=== PATIENT | female | born 1990 | race American Indian/Alaskan Native ===

== ENCOUNTER 2020-12-25 13:40 | Outpatient (REF) | payer MEDICAID, SELFPAY ==
[2020-12-26 11:22] LABS: CT PCR NOT DETECTED (Not Detect.); NG PCR NOT DETECTED (Not Detect.)
[2020-12-26 12:03] LABS: BV Int Neg Control Negative (Negative); BV Int Pos Control Positive (Positive)
[2020-12-30 00:52] LABS: HPV mRNA E6/E7 rflx Not Detected (Not Detected)
== END 2020-12-25 13:41 | disposition home or self-care (01) ==
LOC: HO.LAB 13:40
PROVIDERS: Visit Provider Advanced Practice Midwife
DX: Z01.419 Encounter for gynecological examination (general) (routine) without abnormal findings (principal); Z20.2 Contact with and (suspected) exposure to infections with a predominantly sexual mode of transmission
CPT/HCPCS: 87480; 87491; 87510; 87591; 87624; 87660; 88142

== ENCOUNTER 2020-12-29 12:12 | Outpatient (REF) | payer MEDICAID, SELFPAY ==
[2020-12-30 08:09] LABS: HIV AB/AG Nonreactive (Nonreactive); HIV Num 1 0.08 S/CO (0.00-0.99)
[2020-12-30 08:31] LABS: HBsAGNum1 0.23 S/CO (0.00-0.99); Hepatitis B Surface Antigen Negative (Negative); ~HepC Num1 0.13 S/CO (0.00-0.79); ~Hepatitis C Antibody Nonreactive (Nonreactive)
[2020-12-30 08:47] LABS: Syphilis Screen Nonreactive (Nonreactive)
== END 2020-12-29 12:13 | disposition home or self-care (01) ==
LOC: HO.LAB 12:12
PROVIDERS: Visit Provider Advanced Practice Midwife
DX: Z01.419 Encounter for gynecological examination (general) (routine) without abnormal findings (principal); Z11.4 Encounter for screening for human immunodeficiency virus [HIV]; Z20.2 Contact with and (suspected) exposure to infections with a predominantly sexual mode of transmission
CPT/HCPCS: 36415; 86780; 86803; 87340; 87389

== ENCOUNTER 2021-04-26 10:58 | Outpatient (REF) | payer MEDICAID, SELFPAY | END 2021-04-26 10:59 | disposition home or self-care (01) | LOC: HO.LAB 10:58 | PROVIDERS: Visit Provider Advanced Practice Midwife | DX: R87.615 Unsatisfactory cytologic smear of cervix (principal); Z12.4 Encounter for screening for malignant neoplasm of cervix | CPT/HCPCS: 88142; 99212 ==

== ENCOUNTER 2022-01-06 13:48 | Outpatient (REF) | payer MEDICAID, SELFPAY ==
[2022-01-07 06:58] LABS: CT PCR NOT DETECTED (Not Detect.); NG PCR NOT DETECTED (Not Detect.)
[2022-01-07 10:57] LABS: BV Int Neg Control Negative (Negative); BV Int Pos Control Positive (Positive)
== END 2022-01-06 13:49 | disposition home or self-care (01) ==
LOC: HO.LAB 13:48
PROVIDERS: Visit Provider Advanced Practice Midwife
DX: Z01.411 Encounter for gynecological examination (general) (routine) with abnormal findings (principal); N92.0 Excessive and frequent menstruation with regular cycle; Z20.2 Contact with and (suspected) exposure to infections with a predominantly sexual mode of transmission; E66.9 Obesity, unspecified
CPT/HCPCS: 87480; 87491; 87510; 87591; 87660

== ENCOUNTER 2022-12-02 14:21 | Outpatient (REF) | payer MEDICAID, SELFPAY ==
--- NOTE | ~2022-12-02 | MM_ITS ---
EXAMINATION: MM DIAGNOSTIC DIGITAL BREAST TOMOSYNTHESIS, BILATERAL TARGETED RIGHT BREAST ULTRASOUND CLINICAL INFORMATION: Palpable abnormality periareolar region right breast. The lifetime risk of breast cancer based on the Tyrer-Cuzick Model is 18.9%. COMPARISON: Mammography: None. TECHNIQUE: Digital breast tomosynthesis is performed in both the craniocaudal and mediolateral oblique views along with computer-aided detection (CAD). Synthesized 2D images are generated from the tomosynthesis. Targeted right breast ultrasound. FINDINGS: There are scattered areas of fibroglandular density (ACR BI-RADS breast composition Category b). No suspicious dominant mass is identified. No suspicious grouping of microcalcifications is seen. No architectural distortion is identified. In region of palpable abnormality 12 o'clock position right breast there is a faint 5 x 2 mm density seen underlying the palpable marker. Targeted right breast ultrasound demonstrated in region of the palpable abnormality a 9 x 4 x 8 mm hyperechoic lesion deep to the dermis without distal sound shadowing or distal sound enhancement. Within this there is a small focus of low density and this may represent either a lipoma or site of fat necrosis. Six-month follow up right breast ultrasound is recommended. Results are discussed with the patient at time of visit. MM/MM tomosynthesis diagnostic BI IMPRESSION: Probable region of fat necrosis or lipoma superior periareolar region of the right breast. ASSESSMENT: BI-RADS 3: Probably Benign. RECOMMENDATION: Diagnostic right breast ultrasound in 6 months. This patient's information was entered into a reminder system with a target due date for their next mammogram.
== END 2022-12-02 14:22 | disposition home or self-care (01) ==
LOC: HO.MAMMO 14:21
PROVIDERS: Visit Provider Registered Nurse
DX: N64.4 Mastodynia (principal); N63.15 Unspecified lump in the right breast, overlapping quadrants
CPT/HCPCS: 76642; 77062; 77066

== ENCOUNTER 2023-02-10 11:22 | Outpatient (REF) | payer MEDICAID, SELFPAY ==
[2023-02-11 05:51] LABS: CT PCR NOT DETECTED (Not Detect.); NG PCR NOT DETECTED (Not Detect.)
[2023-02-11 14:51] LABS: BV Int Neg Control Negative (Negative); BV Int Pos Control Positive (Positive)
== END 2023-02-10 11:23 | disposition home or self-care (01) ==
LOC: HO.LNP 11:22
PROVIDERS: Visit Provider Advanced Practice Midwife
DX: Z01.419 Encounter for gynecological examination (general) (routine) without abnormal findings (principal); N89.8 Other specified noninflammatory disorders of vagina; N92.0 Excessive and frequent menstruation with regular cycle; E66.9 Obesity, unspecified; Z86.32 Personal history of gestational diabetes; Z20.2 Contact with and (suspected) exposure to infections with a predominantly sexual mode of transmission
CPT/HCPCS: 0353U; 87480; 87510; 87660

== ENCOUNTER 2023-02-16 08:46 | Outpatient (REF) | payer MEDICAID, SELFPAY ==
[2023-02-16 09:31] LABS: Hemoglobin 13.5 g/dl (12.0-16.0); Mean Corpuscular HGB Conc 32.9 g/dl (31.0-35.0); Mean Corpuscular Hemoglobin 27.1 pg (27.0-33.0); Mean Corpuscular Volume 82.3 fL (80.0-98.0); Mean Platelet Volume 10.9 fL (9.4-12.3); Platelet Count 295 X10*3/uL (160-400); Red Blood Count 4.98 X10*6/uL (4.20-5.50); Red Cell Distribution Width 12.5 % (11.0-16.0); White Blood Count 10.7 X10*3/uL (4.8-10.8)
[2023-02-16 11:09] LABS: Glucose Random 113 mg/dL (60-115); Thyroid Stimulating Hormone 2.07 uIU/mL (0.32-4.0)
[2023-02-16 11:32] LABS: Estimated Average Glucose 120 mg/dL; Hemoglobin A1c % 5.8 %
[2023-02-17 12:14] LABS: Syphilis Screen Nonreactive (Nonreactive)
[2023-02-17 12:45] LABS: HBsAGNum1 0.42 S/CO (0.00-0.99); HIV AB/AG Nonreactive (Nonreactive); HIV Num 1 0.06 S/CO (0.00-0.99); Hepatitis B Surface Antigen Negative (Negative); ~HepC Num1 0.15 S/CO (0.00-0.79); ~Hepatitis C Antibody Nonreactive (Nonreactive)
== END 2023-02-16 08:47 | disposition home or self-care (01) ==
LOC: HO.LAB 08:46
PROVIDERS: Visit Provider Advanced Practice Midwife
DX: Z11.4 Encounter for screening for human immunodeficiency virus [HIV] (principal); E66.9 Obesity, unspecified; N92.0 Excessive and frequent menstruation with regular cycle; Z20.2 Contact with and (suspected) exposure to infections with a predominantly sexual mode of transmission; Z86.32 Personal history of gestational diabetes
CPT/HCPCS: 36415; 82947; 83036; 84443; 85027; 86780; 86803; 87340; 87389

== ENCOUNTER → 2023-02-22 11:23 | Outpatient (BNVA) | payer MEDICAID, SELFPAY | PROVIDERS: Visit Provider Advanced Practice Midwife ==

== ENCOUNTER 2023-10-27 09:44 | Outpatient (REF) | payer MEDICAID, SELFPAY ==
[2023-10-27 11:49] LABS: Estimated Average Glucose 111 mg/dL; Hemoglobin A1c % 5.5 % (<6.0)
[2023-10-27 11:57] LABS: Glucose Random 105 mg/dL (60-115)
== END 2023-10-27 09:45 | disposition home or self-care (01) ==
LOC: HO.HHCL 09:44
PROVIDERS: Visit Provider Internal Medicine
DX: Z86.32 Personal history of gestational diabetes (principal)
CPT/HCPCS: 36415; 82947; 83036; 87086

== ENCOUNTER 2023-11-01 14:17 | Outpatient (REF) | payer MEDICAID, SELFPAY ==
--- NOTE | ~2023-11-01 | XR_ITS ---
EXAMINATION: XR lumbar spine 4V min CLINICAL INFORMATION: Reason for Exam Mid and LBP COMPARISON: None TECHNIQUE: 5 views of the lumbar spine FINDINGS: 5 nonrib-bearing lumbar-type vertebral bodies. Vertebral body heights are maintained. Alignment is maintained. Disc space heights are maintained. Paravertebral soft tissues are unremarkable. XR/XR lumbar spine 4V min IMPRESSION: Unremarkable examination.
--- NOTE | ~2023-11-01 | XR_ITS ---
EXAMINATION: XR THORACOLUMBAR SPINE CLINICAL INFORMATION: Pain COMPARISON: None available. TECHNIQUE: 2 views of the thoracic spine FINDINGS: The vertebral alignment is normal. No intrinsic bony abnormality. The disc heights and neural foramina are well maintained. The endplates and posterior elements are normal. No fracture or subluxation. The surrounding prevertebral soft tissues are unremarkable. XR/XR thoracic spine 2V IMPRESSION: No compression fractures or subluxations are identified. The disc spaces are preserved. No endplate changes are seen. The prevertebral soft tissues are normal. The foramina are patent.
== END 2023-11-01 14:18 | disposition home or self-care (01) ==
LOC: HO.HHCX 14:17
PROVIDERS: Visit Provider Internal Medicine
DX: M54.50 Low back pain, unspecified (principal); M54.6 Pain in thoracic spine
CPT/HCPCS: 72070; 72110; 87086

== ENCOUNTER 2024-01-01 11:00 | Outpatient (REF) | payer MEDICAID, SELFPAY ==
--- NOTE | ~2024-01-01 | US_ITS ---
EXAMINATION: US DIAGNOSTIC ULTRASOUND BREAST, RIGHT BREAST CLINICAL INFORMATION: The patient presents for recommended short interval ultrasound of the 12:00 region of the right breast in the location where the patient had palpated a lump at the time of the 12/02/2022 imaging. The patient indicates that she no longer palpates the lump in this region. COMPARISON: This study is compared with the prior right breast ultrasound from the 12/02/2022. TECHNIQUE: Ultrasound of the breast is performed with real-time garcia scale imaging and color Doppler. FINDINGS: Sonography of the previous area of concern, retroareolar left breast region, reveals no discrete abnormality. The ultrasound is normal in this region. Results are discussed with the patient at time of visit. US/US breast RT limited mamm only IMPRESSION: ] Resolution of a previously palpable finding in the periareolar region of the right breast. ASSESSMENT: BI-RADS 1 - Negative RECOMMENDATION: 1. Patient should be managed based on the clinical impression. 2. Otherwise, routine annual screening mammography. This patient's information was entered into a reminder system with a target due date for their next mammogram.
== END 2024-01-01 11:01 | disposition home or self-care (01) ==
LOC: HO.MAMMO 11:00
PROVIDERS: PCP Internal Medicine; Visit Provider Internal Medicine
DX: N63.15 Unspecified lump in the right breast, overlapping quadrants (principal)
CPT/HCPCS: 76642

== ENCOUNTER → 2024-01-01 11:00 | Outpatient (BNV) | payer MEDICAID, SELFPAY | PROVIDERS: PCP Internal Medicine; Visit Provider Radiology Diagnostic Radiology | DX: N63.15 Unspecified lump in the right breast, overlapping quadrants (principal) | CPT/HCPCS: 76642 ==

== ENCOUNTER 2024-02-27 11:04 | Outpatient (REF) | payer MEDICAID, SELFPAY ==
[2024-02-27 23:06] LABS: CT PCR NOT DETECTED (Not Detect.); NG PCR NOT DETECTED (Not Detect.)
[2024-02-28 10:49] LABS: Bacterial Vaginosis PCR POSITIVE (Negative); Candida Group PCR DETECTED (Not Detect); Candida glab krusei PCR NOT DETECTED (Not Detect); Trichomonas vaginalis PCR NOT DETECTED (Not Detect)
== END 2024-02-27 11:05 | disposition home or self-care (01) ==
LOC: HO.LAB 11:04
PROVIDERS: PCP Internal Medicine; Visit Provider Advanced Practice Midwife
DX: Z01.419 Encounter for gynecological examination (general) (routine) without abnormal findings (principal); R73.03 Prediabetes; E66.9 Obesity, unspecified; Z20.2 Contact with and (suspected) exposure to infections with a predominantly sexual mode of transmission; Z86.32 Personal history of gestational diabetes; Z68.35 Body mass index [BMI] 35.0-35.9, adult
CPT/HCPCS: 0352U; 0353U; 36415; 87625; 88175; 99395

== ENCOUNTER 2024-02-27 11:04 | Outpatient (AMB) | payer MEDICAID, SELFPAY ==
[2024-02-27 11:28] VITALS: BP 112/70; BMI 35.2
--- NOTE | 2024-02-27 11:28 | A.OFFVIS_ITS ---
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 She still does not know who her primary care provider is but she hurt her back at work in November and came here to the [facility] seen by some in another office here and she asked them at the time to do all her blood work to check for diabetes and cholesterol and she says that they told her everything was fine. She has a history of gestational diabetes in her 2 pregnancies and she had 2 C sections she had her tubes tied after the last she has now in a new relationship and is actually interested in getting her tubal opened/reversed. She says she did not know that they closed the birthing center her last child was born in 2019 she had a very good experience with both her deliveries and is sad to hear this. She got last year and was briefly homeless and count so thing but life is much better now. FOR[facility]LY [facility], [facility] Medical History (Updated 02/27/24 @ 12:08 by Alaina Bustillos CNM) [place] History of gallbladder disease Hx gestational diabetes Surgical History H/O tubal ligation Hx of section Family History Paternal Grandmother Cancer Father Diabetes Mother Diabetes Maternal Aunt Breast cancer Paternal Aunt Breast cancer Social History Alcohol intake: never Gender identity: Female Female Reproductive History Menstrual Age of Menarche: 12 Duration of menses: 3-5 days Date of last menstrual period: 01/27/24 control method: permanent sterilization Total pregnancies: 2 Full term: 2 Date of last pap smear: 04/26/21 (negative ,previous pap 12/25/20,unsatisfactory) History of abnormal pap smear: No Physical Exam Vital Signs: Last Vital Signs BP 112/70 02/27/24 11:28 BMI result Body Mass Index 35.2 Const General: healthy appearing, comfortable, no acute distress, well developed and alert Nutritional Appearance: average body habitus and obese centrally obese Orientation/consciousness: patient oriented x3 Limitations: no limitations HEENT Head: Yes normocephalic Neck Neck: Yes normal visual inspection Chest Chest palpation & inspection: normal inspection of the chest Breast/axilla inspection: normal inspection of the breasts and normal inspection of the axillae Breast/axilla palpation: normal palpation of the breasts and normal palpation of the axillae Resp Effort & Inspection: normal respiratory effort GI Inspection: Yes normal to inspection, No Abdominal wall edema and No distended Palpation (GI): Soft to palpation and nontender Other: Vagina pink and clean cervix nulliparous pink smooth clear no abnormal discharge whatsoever mobile nontender adnexa nontender uterus nontender midposition good tone with Kegel. General: Yes bladder normal to palpation External Female Exam: normal external appearance and normal appearance of the urethra Speculum Exam - Vagina: normal appearance of the vagina, normal palpation and normal vaginal discharge Speculum Exam - Cervix: normal appearance of the cervix, normal palpation and nontender Bimanual exam- vagina & uterus: normal bimanual exam, normal palpation, uterine size normal, bladder normal to palpation, consistency normal, normal palpation, uterine mobility normal, uterine shape normal, No Cervical tenderness present, non-tender and no cervical motion tenderness Bimanual Exam- Adnexa, other: normal adnexae, no masses, normal and No adnexal tenderness Neuro General: patient oriented x3 Assessment & Plan Assessment & Plan (1) Prediabetes: Comment: hgb A1c=5.8, fbs= 113. Code(s): R73.03 - Prediabetes Category: Medical (2) Obesity (BMI 35.0-39.9 without comorbidity): Code(s): E66.9 - Obesity, unspecified Category: Medical (3) Hx gestational diabetes: Code(s): Z86.32 - Personal history of gestational diabetes Category: Medical (4) Potential exposure to STD: Code(s): Z20.2 - Contact with and (suspected) exposure to infections with a predominantly sexual mode of transmission Category: Medical (5) Cervical cancer screening: Comment: prev pap 5 yrs ago, 12/25/20 pap, HPV neg, insufficient cells, repeated 04/26/21=neg Code(s): Z12.4 - Encounter for screening for malignant neoplasm of cervix Category: Medical (6) Well woman exam with routine gynecological exam: Code(s): Z01.419 - Encounter for gynecological examination (general) (routine) without abnormal findings Category: Medical Plan -----Discussed in this visit the following: healthy balanced diet, regular and consistent exercise, getting recommended health screens, doing the best she can for her particular health concerns, kegel exercises, pap smear screening and followup recommendations, mammography screening and SBE, normal changes in cycles in her life stage--- . Reviewed that there has no ability to get her tubes reversed that [facility] and she might want to check with [facility] and [facility]. Reviewed that [facility] usually does not pay for it. Reviewed that before getting she would want to be sure she has in the best possible health she can be and that her fasting blood sugar done this year was better than it had been at 01:05 but she should always consider herself at risk for diabetes because of her history and before try to lose weight and be as healthy as she can be. She had to move back here, from [facility] where her family is, because she was court ordered, because she had not been informed about a court date, and so missed it. so she is in a custody disagreement with her ex-. They have a therapist for the kids. I wished her well with this. Reviewed mostly the importance of trying to be in his healthy position she can be and that if she did get , that [facility] no longer has birthing facility or the ability to deliver comprehensive obstetrical care. Discussed that she should discuss her health clearly with whoever she speaks to terms of considering tubal ligation reversal. Coding Level of Care Code Est Pt Prev Care [id number]([id number]) Diagnoses Prediabetes R73.03 Obesity (BMI 35.0-39.9 without comorbidity) E66.9 Hx gestational diabetes Z86.32 Potential exposure to STD Z20.2 Cervical cancer screening Z12.4 Well woman exam with routine gynecological exam Z01.419
== END 2024-02-27 13:23 | disposition home or self-care (01) ==
LOC: HO.HWSM 11:04
PROVIDERS: PCP Internal Medicine; Visit Provider Advanced Practice Midwife
DX: R73.03 Prediabetes (principal); E66.9 Obesity, unspecified; Z86.32 Personal history of gestational diabetes; Z20.2 Contact with and (suspected) exposure to infections with a predominantly sexual mode of transmission; Z12.4 Encounter for screening for malignant neoplasm of cervix; Z01.419 Encounter for gynecological examination (general) (routine) without abnormal findings
CPT/HCPCS: 99395

== ENCOUNTER 2024-03-08 12:20 | Outpatient (REF) | payer MEDICAID, SELFPAY ==
[2024-03-15 09:37] LABS: HPV mRNA E6/E7 rflx Not Detected
== END 2024-03-08 12:21 | disposition home or self-care (01) ==
LOC: HO.LAB 12:20
PROVIDERS: Visit Provider Advanced Practice Midwife
DX: Z12.4 Encounter for screening for malignant neoplasm of cervix (principal)
CPT/HCPCS: 87624

== ENCOUNTER 2025-02-14 11:46 | Outpatient (REF) | payer MEDICAID, SELFPAY ==
--- NOTE | ~2025-02-14 | MM_ITS ---
EXAMINATION: MM SCREENING DIGITAL BREAST TOMOSYNTHESIS, BILATERAL CLINICAL INFORMATION: Screening. Asymptomatic. COMPARISON: Mammography: Comparison is made with available priors TECHNIQUE: Digital breast mammography with tomosynthesis is performed in both the craniocaudal and mediolateral oblique views along with computer-aided detection (CAD). FINDINGS: There are scattered areas of fibroglandular density (ACR BI-RADS breast composition Category b). Left: Asymmetry lateral breast posterior depth on CC view. No suspicious calcifications or other abnormal findings. Right: There are no significant masses, abnormal calcifications, or other abnormalities. MM/MM tomosynthesis screening BI IMPRESSION: Additional imaging is recommended ASSESSMENT: BI-RADS BI-RADS 0 - Incomplete: Needs additional Imaging. RECOMMENDATION: 1. Additional views of the left breast. 2. Targeted ultrasound if warranted after review of the additional views. 3. Radiology department staff will contact the patient for additional imaging. Additional Imaging required This examination should not preclude the clinical evaluation of a suspicious palpable abnormality. This patient's information was entered into a reminder system with a target due date for their next mammogram. Electronically signed by: Deana Garcia DO 02/14/2025 03:11 PM EDT
--- OUTSIDE RECORDS SUMMARY | 2025-02-14 12:44 | XMS_ITS | Clinical Summary ---
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 Name Role Phone Unavailable Primary Care Provider Unavailabl e Social History Tobacco Use Types Packs/Day Years Used Date Smoking Tobacco: Never Assessed Comments Unknown Sex and Gender Information Value Date Recorded Sex Assigned at Not on file Legal Sex Female 12:36 PM EST Gender Identity Not on file Sexual Orientation Not on file Plan of Treatment Health Maintenance Due Date Last Done Comments DTaP,Tdap,and Td Vaccines (1 - Tdap) 2009 Hepatitis B Vaccines (1 of 3 - 19+ 3-dose series) 2009 Cervical Cancer Screening: P ap Smear 2011 COVID-19 Vaccine ( - 2023-2 5 season) 2024 Influenza Vaccine (Season Ended) 2025 HIB Vaccines Aged Out No longer eligi ble based on patient's age to complete this topic HPV Vaccines Aged Out No longer eligi ble based on patient's age to complete this topic Hepatitis A Vaccines Aged Out No long er eligible based on patient's age to complete this topic IPV Vaccines Aged Out No longer eligi ble based on patient's age to complete this topic MMR Vaccines Aged Out No longer eligi ble based on patient's age to complete this topic Meningococcal ACWY Vaccine Aged Out N o longer eligible based on patient's age to complete this topic Meningococcal B Vaccine Aged Out No l onger eligible based on patient's age to complete this topic Pneumococcal Vaccine: Pediat rics (0 to 5 Years) and At-Risk Patients (6 to 64 Years) Aged Out No longer eligible b ased on patient's age to complete this topic RSV Immunization Patients Un april 20 months Aged Out No longer eligible b ased on patient's age to complete this topic Varicella Vaccines Aged Out No longer eligible based on patient's age to complete this topic
== END 2025-02-14 11:47 | disposition home or self-care (01) ==
LOC: HO.MAMMO 11:46
PROVIDERS: PCP Internal Medicine; Visit Provider Internal Medicine
DX: Z12.31 Encounter for screening mammogram for malignant neoplasm of breast (principal)
CPT/HCPCS: 77063; 77067

== ENCOUNTER → 2025-02-14 12:00 | Outpatient (BNV) | payer MEDICAID, SELFPAY | PROVIDERS: PCP Internal Medicine; Visit Provider Internal Medicine | DX: Z12.31 Encounter for screening mammogram for malignant neoplasm of breast (principal) | CPT/HCPCS: 77063; 77067 ==

== ENCOUNTER → 2025-03-31 10:30 | Outpatient (BNV) | payer MEDICAID, SELFPAY | PROVIDERS: PCP Internal Medicine; Visit Provider Radiology Body Imaging | DX: R92.8 Other abnormal and inconclusive findings on diagnostic imaging of breast (principal) | CPT/HCPCS: 76642; 77061; 77065 ==

== ENCOUNTER 2025-03-31 10:31 | Outpatient (REF) | payer MEDICAID, SELFPAY ==
--- NOTE | ~2025-03-31 | MM_ITS ---
EXAMINATIONS: 1. MM DIAGNOSTIC DIGITAL BREAST TOMOSYNTHESIS, LEFT 2. US BREAST LIMITED LEFT CLINICAL INFORMATION: -Callback from screening for left breast asymmetry lateral posterior depth on the CC view. -Today, patient mentioned pain in the left breast for about 3 months, lateral side towards the nipple. COMPARISON: February 14, 2025 and December 02, 2022 TECHNIQUE: Digital breast tomosynthesis is performed in full field ML 90 degrees and CC views along with computer-aided detection (CAD). Synthesized 2D images are generated from the tomosynthesis. Spot compression tomosynthesis images were also obtained. FINDINGS: BREAST COMPOSITION: There are scattered areas of fibroglandular density (ACR BI-RADS breast composition Category b). LEFT BREAST: - Previously suggested asymmetry in the lateral breast posterior depth at approximately 13 cm from the nipple on the CC view is pliable with spot compression. It is tentatively identified in the retroareolar plane on the ML 90 degrees. - No new masses or other abnormalities at the location of the pain. Targeted ultrasound of the left breast was performed at the following locations: - At the mammographic finding. The survey was performed throughout the 12:00-4:00 axis and did not reveal suspicious sonographic findings. - At the location of the pain. The survey was performed at 11:00-2:00 up to 4 to 5 cm from the nipple. Survey did not reveal suspicious sonographic findings. MM/MM tomosynthesis added views L IMPRESSION: LEFT BREAST: 1. Pliable asymmetry in the lateral breast at approximately 13 cm from the nipple on the CC view, without suspicious sonographic correlate. Probably benign. A 6-month follow-up mammogram is recommended. 2. No suspicious findings correlating with the location of focal pain. Clinical follow-up is recommended. ASSESSMENT: BI-RADS 3 - Probably benign finding(s) - 6 month follow-up suggested RECOMMENDATION: 6 Month F/U Results were provided to the patient at time of visit by the technologist. This patient's information was entered into a reminder system with a target due date for their next mammogram. Electronically signed by: Ryan Miranda MD 03/31/2025 12:05 PM EDT
--- OUTSIDE RECORDS SUMMARY | 2025-03-31 11:42 | XMS_ITS | Clinical Summary ---
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
--- OUTSIDE RECORDS SUMMARY | 2025-03-31 11:42 | XMS_ITS | Encounter Summary ---
Author Organization [employer] Address [address] [place] [address] [address] [place] [address] Care Team Providers Care Mud Worker Name Role Phone Ирина Santiago NP Primary Care Provider [phone] Encounter Details Date Type Department Care Team (Latest Contact Info) Description 03/27/2025 Travel Social History Tobacco Use Types Packs/Day Years Used Date Smoking Tobacco: Never Smokeless Tobacco: Never Depression Answer Date Recorded Patient Health Questionnaire-9 Score 14 03/28/2025 Patient Health Questionnaire-9 Score 14 03/28/2025 Last PHQ-9: Questionnaire Data Not on file 0 03/28/2025 Depression Answer Date Recorded Patient Health Questionnaire-2 Score 6 03/28/2025 Comments Unknown Sex and Gender Information Value Date Recorded Sex Assigned at Female 07/04/2022 10:35 AM EDT Legal Sex Female 10:35 AM EDT Gender Identity Choose not to disclose 10:35 AM EDT Sexual Orientation Choose not to disclose 2021 10:35 AM EDT documented as of this encounter Plan of Treatment Not on file documented as of this encounter Visit Diagnoses Not on filedocumented in this encounter Care Teams Mud Worker Relationship Specialty Start Date End Date Ирина Santiago NP [address] [place] [address] PCP - General Family Medicine 02/28/24 documented as of this encounter
== END 2025-03-31 10:32 | disposition home or self-care (01) ==
LOC: HO.MAMMO 10:31
PROVIDERS: PCP Internal Medicine; Visit Provider Internal Medicine
DX: N64.89 Other specified disorders of breast (principal)
CPT/HCPCS: 76642; 77061; 77065

== ENCOUNTER 2025-05-07 10:25 | Outpatient (REF) | payer MEDICAID, SELFPAY ==
--- NOTE | ~2025-05-07 | XR_ITS ---
EXAMINATION: XR LUMBOSACRAL SPINE CLINICAL INFORMATION: chronic LBP COMPARISON: 10/24/2023. TECHNIQUE: 5 views of the lumbar spine, inclusive of bilateral oblique views, were obtained. FINDINGS: Transitional lumbosacral anatomy is present with mild sacralization of the L5 vertebral body. There is pseudoarticulation of the left transverse process of L5 at the left sacral ala. There is normal lordosis. There is no scoliosis. There is no subluxation. There are no fractures, compression deformities, or suspicious bone lesions. There are no pars defects. Mild disc degeneration is present L4-5 and L5-S1. Disc spaces otherwise normal. Facets are normally aligned. No significant facet arthrosis. No soft tissue abnormalities. There are 2 surgical clips in the right mid pelvis. XR/XR lumbar spine 4V min IMPRESSION: 1. No acute findings of the lumbar spine. 2. Mild disc degeneration is present L4-5 and L5-S1. Electronically signed by: Govind Adam MD 05/07/2025 12:08 PM EDT
--- OUTSIDE RECORDS SUMMARY | 2025-05-07 09:30 | XMS_ITS | Encounter Summary ---
Author Organization [employer] Address [address] [place] [address] 7 [place] [address] Care Team Providers Care Manager Story Name Role Phone Marylu Rodrigues MD Primary Care Provider + Reason for Visit * Reason Comments Transfer pt Encounter Details Date Type Department Care Team ([facility] Contact Info) Description 05/07/2025 9:30 AM EDT Office Visit [facility] [address] [place], [place] [phone] Marylu Rodrigues MD [address] [place], [place] [phone] Breast lump on right side at 12 o'clock position (Primary Dx); Severe episode of recurrent major depressive disorder, without psychotic features (CMS/HCC); Chronic bilateral low back pain without sciatica; Dietary counseling; Exercise counseling; Class 2 obesity due to excess calories without serious comorbidity with body mass index (BMI) of 35.0 to 35.9 in adult; Screening examination for STD (sexually transmitted disease) Social History Tobacco Use Types Packs/Day Years Used Date Smoking Tobacco: Never Smokeless Tobacco: Never Depression Answer Date Recorded Patient Health Questionnaire-9 Score 14 03/28/2025 Patient Health Questionnaire-9 Score 14 03/28/2025 Last PHQ-9: Questionnaire Data Not on file 0 03/28/2025 Housing Stability Answer Date Recorded What is your housing situation today? I have vanessa escobar 04/28/[address] you li ve. Do you have problems with any of the following? None of the above 04/28/2025 Food Insecurity Answer Date Recorded Within the past 12 months, y ou worried that your food would run out before you got money to buy more: Never True 04/28/2025 Within the past 12 months,th e food you bought just didn't last and you didn't have enough money to get more: Never True Transportation Answer Date Recorded In the past 12 months, has l ack of transportation kept you from medical appts, meetings, work or from getting things needed for daily living? Yes, it has kept me from non-medical meetings, work, or getting things that I need 04/28/2025 Utilities Answer Date Recorded In the past 12 months, has t he electric, gas, oil or water company threatened to shut off services in your home? Yes 04/28/2025 Depression Answer Date Recorded Patient Health Questionnaire-2 Score 6 03/28/2025 Internet Access Answer Date Recorded Internet Access Q1 Yes 04/28/2025 Internet Access Q2 Not on file 04/28/2025 Comments Unknown Sex and Gender Information Value Date Recorded Sex Assigned at Female 07/04/2022 10:35 AM EDT Legal Sex Female 10:35 AM EDT Gender Identity Choose not to disclose 10:35 AM EDT Sexual Orientation Choose not to disclose 2021 10:35 AM EDT documented as of this encounter Last Filed Vital Signs Vital Sign Reading Time Taken Comments Blood Pressure 118/60 05/07/2025 9:49 AM EDT Pulse 100 05/07/2025 9:49 AM EDT Temperature 36.2 C (97.2 F) 05/07/2025 9:49 AM EDT Respiratory Rate 22 05/07/2025 9:49 AM EDT Oxygen Saturation - - Inhaled Oxygen Concentration - - Weight 91.7 kg (202 lb 3.2 oz) 05/07/2025 9:49 A M EDT Height 160 cm (5' 3 ) 05/07/2025 9:49 AM EDT Body Mass Index 35.82 05/07/2025 9:49 AM EDT documented in this encounter Plan of Treatment Upcoming Encounters Date Type Department Care Team (Late st Contact Info) Description 07/08/2025 12:00 PM EST Office Visit [facility] [address] [place], [place] [phone] Marylu Rodrigues MD [address] [place] [address] Pending Results Name Type Priority Associated Diagnoses Date /Time Comprehensive Metabolic Panel Lab Routine Class 2 obesity due to excess calories without serious comorbidity with body mass index (BMI) of 35.0 to 35.9 in adult 05/07/2025 10:34 AM EDT Lipid Panel with Reflex to Direct LDL Lab Routine Class 2 obesity due to excess calories without serious comorbidity with body mass index (BMI) of 35.0 to 35.9 in adult 05/07/2025 10:34 AM EDT Scheduled Orders Name Type Priority Associated Diagnoses Orde r Schedule TSH with Reflex to Free T4 Lab Routine Severe episode of recurrent major depressive disorder, without psychotic features (CMS/HCC) Class 2 obesity due to excess calories without serious comorbidity with body mass index (BMI) of 35.0 to 35.9 in adult Expected: 05/07/2025 (Approximate), Expires: 05/07/2026 Hepatitis Panel, General Lab Routine Screening examination for STD (sexually transmitted disease) Expected: 05/07/2025 (Approximate), Expires: 05/07/2026 HIV-1/2 Antigen and Antibodies, Fourth Generation, with Reflexes Lab Routine Screening examination for STD (sexually transmitted disease) Expected: 05/07/2025 (Approximate), Expires: 05/07/2026 Syphilis Screen Lab Routine Screening examination for STD (sexually transmitted disease) Expected: 05/07/2025 (Approximate), Expires: 05/07/2026 Chlamydia/N. Gonorrhoeae RNA, TMA, Urogenitial Microbiology Routine Screening examination for STD (sexually transmitted disease) Ordered: 05/07/2025 documented as of this encounter Procedures Procedure Name Priority Date/Time Associated Diagnosis Comments LIPID PANEL WITH REFLEX TO DIRECT LDL Routine 05/07/2025 10:34 AM EDT Class 2 obesity due to excess calories without serious comorbidity with body mass index (BMI) of 35.0 to 35.9 in adult CBC WITH AUTO DIFFERENTIAL Routine 05/07/2025 10:34 AM EDT Breast lump on right side at 12 o'clock position Chronic bilateral low back pain without sciatica HEMOGLOBIN A1C Routine 05/07/2025 10:34 AM EDT Class 2 obesity due to excess calories without serious comorbidity with body mass index (BMI) of 35.0 to 35.9 in adult COMPREHENSIVE METABOLIC PANEL Routine 05/07/2025 10:34 AM EDT Class 2 obesity due to excess calories without serious comorbidity with body mass index (BMI) of 35.0 to 35.9 in adult XR LUMBAR SPINE COMPLETE 4+ VIEWS Routine 05/07/2025 10:04 AM EDT Chronic bilateral low back pain without sciatica documented in this encounter Results * (ABNORMAL) CBC auto differential (05/07/2025 10:34 AM EDT) White Blood Count 6.9 4.8 - 10.8 X10*3/uL [facility] Red Blood Count 4.70 4.20 - 5.50 X10*6/uL [facility] Hemoglobin 12.8 12.0 - 16.0 g/dl [facility] Hematocrit 37.8 37.0 - 47.0 % [facility] Mean Corpuscular Volume 80.4 80.0 - 98.[address] [facility] Mean Corpuscular Hemoglobin 27.2 27.0 - 33.[address] [facility] Mean Corpuscular HGB Conc 33.9 31.0 - 35.0 g/dl [facility] Red Cell Distribution Width 12.8 11.0 - 16.0 % [facility] Platelet Count 299 160 - 400 X10*3/uL [facility] Mean Platelet Volume 10.8 9.4 - 12.[address] [facility] Neutrophils Percent Auto 59.4 45 - 73 % [facility] Imm Gran Pct Auto 0.6(H) 0.0 - 0.4 % [facility] Lymphocytes Percent Auto 32.9 20 - 40 % [facility] Monocytes Percent Auto 4.6 2 - 11 % [facility] Eosinophils Percent Auto 2.2 0 - 4 % [facility] Basophils Percent Auto 0.3 0 - 2 % [facility] NRBC Pct Auto 0.0 0.0 - 0.2 /100WBC [facility] Neutrophils Absolute Auto 4.1 2.0 - 8.3 x10*3/uL [facility] Imm Gran Abs Auto 0.04(H) 0.00 - 0.03 X10*3/uL [facility] Lymphocytes Absolute Auto 2.3 1.2 - 4.9 X10*3/uL [facility] Monocytes Absolute Auto 0.3 0.1 - 1.2 X10*3/uL [facility] Eosinophils Absolute Auto 0.2 0.0 - 0.4 X10*3/uL [facility] Basophils Absolute Auto 0.0 0.0 - 0.2 X10*3/uL [facility] NRBC Abs Auto 0.000 0.0 - 0.012 X10*3/uL [facility] Blood Venous blood specimen / Unknown 05/07/2025 10:34 AM EDT 05/07/2025 11:12 AM EDT us Marylu Rodrigues MD LAB BLOOD ORDERABLES Fin al Result [facility] [address] [place] [phone] * (ABNORMAL) Hemoglobin A1c (05/07/2025 10:34 AM EDT) Hemoglobin A1c 6.1(H) <6.0 % [facility] Comment:Hemoglobin A1C Refer ence Range Adults: 4.8 - 6.0 % Non diabetic: < 6.0 % Goal: < 7.0 %Additional Action Suggested: > 8.0 %Note: Hemoglobin A1c results are invalid for patients with abnormal amounts of HbF. Blood transfusions may impact the HbA1c concentration in the patient sample. Estimated Average Glucose 128 mg/dL [facility] Comment:eAG = Estimated ave rage glucose which is %A1C expressed asaverage glucose, using the formula of the Z5B-YaqiuxbCasamxc Glucose study (ADAG), Diabetes Care, Vol.31,#8,Apr. 2007 Blood Venous blood specimen / Unknown 05/07/2025 10:34 AM EDT 05/07/2025 11:12 AM EDT us Marylu Rodrigues MD LAB BLOOD ORDERABLES Fin al Result [facility] [address] [place] [phone] * XR Lumbar Spine Complete 4+ Views (05/07/2025 10:04 AM EDT) Anatomical Region Laterality Modality Spine, L-spine Radiographic Candy ging 05/07/2025 10:0 4 AM EDT Narrative 05/07/2025 12:11 PM EDT [address] [address] XRay Report Signed Patient: Jaleesa Casper MR#: [id number] 39 : 1990 Acct:[id number] Age/Sex: 34 / F ADM Date: 05/07/25 Loc: .[facility] Attending Dr: Marylu Rodrigues MD Ordering Physician: Marylu Rodrigues MD Date of Service: 05/07/25 Procedure(s): XR lumbar spine 4V min Accession Number(s): [id number] cc: Marylu Rodrigues MD Reason for Exam: chronic LBP EXAMINATION: XR LUMBOSACRAL SPINE CLINICAL INFORMATION: chronic LBP COMPARISON: 10/24/2023. TECHNIQUE: 5 views of the lumbar spine, inclusive of bilateral oblique views, were obtained. FINDINGS: Transitional lumbosacral anatomy is present with mild sacralization of the L5 vertebral body. There is pseudoarticulation of the left transverse process of L5 at the left sacral ala. There is normal lordosis. There is no scoliosis. There is no subluxation. There are no fractures, compression deformities, or suspicious bone lesions. There are no pars defects. Mild disc degeneration is present L4-5 and L5-S1. Disc spaces otherwise normal. Facets are normally aligned. No significant facet arthrosis. No soft tissue abnormalities. There are 2 surgical clips in the right mid pelvis. XR/XR lumbar spine 4V min IMPRESSION: 1. No acute findings of the lumbar spine. 2. Mild disc degeneration is present L4-5 and L5-S1. Electronically signed by: Govind Adam MD 05/07/2025 12:08 PM EDT RP Dictated By: Govind Adam MD Signed By: <Electronically signed by Govind Adam MD in OV> 05/07/25 1208 DD/ 1004 TD/TT: 05/07/25 1005 Verifier Operator: Procedure Note Kevter, Image - 05/07/[address] [address] XRay Report Signed Patient: Jaleesa Casper MMR#: [id number] 39 : 1990Acct:[id number] Age/Sex: 34 / FADM Date: 05/07/25 Loc: [facility] Attending Dr: Marylu Rodrigues MD Ordering Physician: Marylu Rodrigues MD Date of Service: 05/07/25 Procedure(s): XR lumbar spine 4V min Accession Number(s): [id number] cc: Marylu Rodrigues MD Reason for Exam: chronic LBP EXAMINATION: XR LUMBOSACRAL SPINE CLINICAL INFORMATION: chronic LBP COMPARISON: 10/24/2023. TECHNIQUE: 5 views of the lumbar spine, inclusive of bilateral oblique views, were obtained. FINDINGS: Transitional lumbosacral anatomy is present with mild sacralization of the L5 vertebral body. There is pseudoarticulation of the left transverse process of L5 at the left sacral ala. There is normal lordosis. There is no scoliosis. There is no subluxation. There are no fractures, compression deformities, or suspicious bone lesions. There are no pars defects. Mild disc degeneration is present L4-5 and L5-S1. Disc spaces otherwise normal. Facets are normally aligned. No significant facet arthrosis. No soft tissue abnormalities. There are 2 surgical clips in the right mid pelvis. XR/XR lumbar spine 4V min IMPRESSION: 1. No acute findings of the lumbar spine. 2. Mild disc degeneration is present L4-5 and L5-S1. Electronically signed by: Govind Adam MD 05/07/2025 12:08 PM EDT RP Dictated By: Govind Adam MD Signed By: <Electronically signed by Govind Adam MD in OV> 05/07/25 1208 DD/ 1004 TD/TT: 05/07/25 1005 Verifier Operator: Marylu Rodrigues MD IMG XR PROCEDURES Final Result documented in this encounter Visit Diagnoses Diagnosis Breast lump on right side at 12 o'clock position- Primary Lump or mass in breast Severe episode of recurrent major depressive disorder, without psychotic features (CMS/HCC) Chronic bilateral low back pain without sciatica Dietary counseling Dietary surveillance and counseling Exercise counseling Class 2 obesity due to excess calories without serious comorbidity with body mass index (BMI) of 35.0 to 35.9 in adult Screening examination for STD (sexually transmitted disease) documented in this encounter Additional Health Concerns Assessment Noted Time PHQ-9 Depression Total Score: 14 03/28/ 025 4:02 PM EDT documented as of this encounter Care Teams Manager Story Relationship Specialty Start Date End Date Marylu Rodrigues MD [address] [place] [phone] PCP - General Internal Medicine 05/07/25 documented as of this encounter
[2025-05-07 11:18] LABS: MANUAL DIFF FLAG NO
[2025-05-07 11:42] LABS: Hematocrit 37.8 % (37.0-47.0); Hemoglobin 12.8 g/dl (12.0-16.0); Imm Gran Abs Auto 0.04 X10*3/uL (0.00-0.03); Imm Gran Pct Auto 0.6 % (0.0-0.4); Lymphocytes Absolute Auto 2.3 X10*3/uL (1.2-4.9); Mean Corpuscular HGB Conc 33.9 g/dl (31.0-35.0); Mean Corpuscular Hemoglobin 27.2 pg (27.0-33.0); Mean Corpuscular Volume 80.4 fL (80.0-98.0); NRBC Abs Auto 0.000 X10*3/uL (0.0-0.012); NRBC Pct Auto 0.0 /100WBC (0.0-0.2); Platelet Count 299 X10*3/uL (160-400); Red Blood Count 4.70 X10*6/uL (4.20-5.50); White Blood Count 6.9 X10*3/uL (4.8-10.8)
[2025-05-07 11:46] LABS: Hemoglobin A1C 143.0718 umol/L; Total Hemoglobin (HGBA1C) 3350.0970 umol/L
[2025-05-07 12:10] LABS: Alanine Aminotransferase 39 U/L (0-31); Albumin Level 4.3 g/dL (3.5-5.0); Alkaline Phosphatase 78 U/L (39-117); Anion Gap 11 (12-20); Aspartate Amino Transferase 30 U/L (5-31); Blood Urea Nitrogen 5 mg/dL (9-16); Calcium 8.5 mg/dL (8.4-10.2); Carbon Dioxide 22 mmol/L (22-29); Chloride 108 mmol/L (96-108); Cholesterol 160 mg/dL (<200); Estimated Glomerular Filt Rate > 60; HDL Cholesterol 38 mg/dL (>40); Potassium 4.1 mmol/L (3.3-5.1); Sodium 137 mmol/L (135-145); Total Protein 7.4 g/dL (6.5-8.0); Triglycerides 94 mg/dL (<150)
--- OUTSIDE RECORDS SUMMARY | 2025-05-07 12:13 | XMS_ITS | Clinical Summary ---
Author Organization [facility] Address [address] [place] [address] Care Team Providers Care Loftsman/Woman Name Role Phone Unavailable Primary Care Provider [...] Cervical Cancer Screening: P ap Smear 2011 Depression Screening 09/04/2024 COVID-19 Vaccine ( - 2023-2 5 season) 2025 Influenza Vaccine (#1) 2025 HIB Vaccines Aged [...]
--- OUTSIDE RECORDS SUMMARY | 2025-05-07 12:13 | XMS_ITS | Encounter Summary ---
Author Organization [employer] Address [address] [place] [address] Care Team Providers Care High School Music Instructor Name Role Phone Glendy Knight Primary Care Provider [phone] Ирина Santiago NP Primary Care Provider [phone] Marylu Rodrigues MD Primary Care Provider + Encounter Details Date Type Department Care Team (Late st Contact Info) Description 02/21/2023 Abstract [facility] [address] [place] [address] [phone] Glendy Knight FNP [address] [place] [phone] Social History Tobacco Use Types Packs/Day Years Used Date Smoking Tobacco: Never Smokeless Tobacco: Never Comments Unknown Sex and Gender Information Value Date Recorded Sex Assigned at Female 07/04/2022 10:35 AM EDT Legal Sex Female 10:35 AM EDT Gender Identity Choose not to disclose 10:35 AM EDT Sexual Orientation Choose not to disclose 2021 10:35 AM EDT documented as of this encounter Plan of Treatment Upcoming Encounters Date Type Department Care Team (Late Contact Info) Description 07/08/2025 12:00 PM EST Office Visit [facility] [address] [place] [phone] Marylu Rodrigues MD [address] [place] [phone] documented as of this encounter Procedures Procedure Name Priority Date/Time Associated Diagnosis Comments HM PAP/HPV Routine 04/27/2021 documented in this encounter Results * Hm Pap Smear (04/27/2021) Pap Negative for intraephithelial lesion or malignancy Negative for intraephithelial lesion or malignancy, Other 04/27/2021 us Historical Provider [facility] Final Result documented in this encounter Visit Diagnoses Not on filedocumented in this encounter Care Teams High School Music Instructor Relationship Specialty Start Date End Date Glendy Knight FNP [address] [place] [address] PCP - General Family Medicine 01/31/23 02/27/24 Ирина Santiago NP [address] [place] [address] PCP - General Family Medicine 02/28/24 05/06/25 Marylu Rodrigues MD [address] [place] [address] PCP - General Internal Medicine 05/07/25 documented as of this encounter
--- OUTSIDE RECORDS SUMMARY | 2025-05-07 12:13 | XMS_ITS | Clinical Summary ---
Author Organization [employer] Address [address] [place] [address] Care Team Providers Care Line And Frame Poler Name Role Phone Marylu Rodrigues MD Primary Care Provider + Allergies No known active allergies Medications * This document contains information received from the source organization and may not represent a complete record from that organization. meloxicam (Mobic) 15 MG tablet Take 1 tablet (15 mg) by mouth Once per day. 30 tablet 05/07/2025 6 Active cyclobenzaprine (Flexeril) 10 MG tablet Take 1 tablet (10 mg) by mouth at bedtime for 10 days. 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 Date Type Department Care Team Description 05/07/2025 9:30 AM EDT Office Visit [facility] [address] [place] [address] Marylu Rodrigues MD Breast lump on right side at 12 o'clock position (Primary Dx); Severe episode of recurrent major depressive disorder, without psychotic features (CMS/HCC); Chronic bilateral low back pain without sciatica; Dietary counseling; Exercise counseling; Class 2 obesity due to excess calories without serious comorbidity with body mass index (BMI) of 35.0 to 35.9 in adult; Screening examination for STD (sexually transmitted disease) 05/07/2025 Travel 04/28/2025 Patient Outreach [facility] [address] [place] [phone] Ирина Santiago NP Care Coordination (CHW outreach for SDOH PT-1 and food needs-referral completed /) 04/28/2025 Patient Outreach [facility] [address] [place] [phone] Ирина Santiago NP Pre-visit Planning (SDOH screening negative and tobacco screening negative) 04/16/2025 11:00 AM EDT Office Visit [facility] [address] [place] [address] Karlene Merino, OD Severe myopia of both eyes (Primary Dx) 04/16/2025 Travel 04/08/2025 Results Follow-Up [facility] [address] [place] [phone] Marylu Rodrigues MD BI US Breast Limited Left 04/07/2025 Outside Procedure [facility] [address] [place] [address] Mac Merinon, OD Severe myopia of both eyes (Primary Dx) 03/27/2025 3:30 PM EDT Office Visit [facility] [address] [place] [address] Mac Merinon, OD Severe myopia of both eyes (Primary Dx) 03/27/2025 Travel 03/25/2025 Travel 03/20/2025 3:30 PM EDT Office Visit [facility] [address] [place] [address] Mac Merinon, OD Operculated retinal tear of right eye (Primary Dx); Entropion, unspecified laterality; Elevated IOP, bilateral; Severe myopia of both eyes 03/20/2025 Travel 02/14/2025 Orders Only [facility] [address] [place] [address] Marylu Rodrigues MD 02/07/2025 Population Health Risk Score [facility] () Department [address] [place] [phone] Provider, Population Health Generic from Last 3 Months Immunizations Immunization Administration Dates Next Due Influenza injectable quadrivalent preservative f ree 10/01/2015 MMR 10/30/2015 Tdap 10/01/2015 Family History Medical History Relation Name Comments Breast cancer Father's Sister Breast cancer Mother's Sister Relation Name Status Comments Father's Sister Mother's Sister Social History Tobacco Use Types Packs/Day Years Used Date Smoking Tobacco: Never Smokeless Tobacco: Never Tobacco Cessation:Counseling Given: Not Answered Depression Answer Date Recorded Patient Health Questionnaire-9 Score 14 03/28/2025 Patient Health Questionnaire-9 Score 14 03/28/2025 Last PHQ-9: Questionnaire Data Not on file 0 03/28/2025 Housing Stability Answer Date Recorded What is your housing situation today? I have vanessasheila escobar 04/28/[address] you [...] not to disclose 2021 10:35 AM EDT Last Filed Vital Signs Vital Sign Reading Time Taken Comments Blood Pressure 118/60 05/07/2025 9:49 AM EDT Pulse 100 05/07/2025 9:49 AM EDT Temperature 36.2 C (97.2 F) 05/07/2025 9:49 AM EDT Respiratory Rate 22 05/07/2025 9:49 AM EDT Oxygen Saturation 98% 10/27/2023 9:01 AM EST Inhaled Oxygen Concentration - - Weight 91.7 kg (202 lb 3.2 oz) 05/07/2025 9:49 A M EDT Height 160 cm (5' 3 ) 05/07/2025 9:49 AM EDT Body Mass Index 35.82 05/07/2025 9:49 AM EDT Plan of Treatment Upcoming Encounters Date Type Department Care Team (Late st Contact Info) Description 07/08/2025 12:00 PM EST Office Visit [facility] [address] [place] [address] Marylu Rodrigues MD [address] [place] [address] Health Maintenance Due Date Last Done Comments HIV Screening 1990 Alcohol/Substance Use Screening 2002 Family Planning (PISQ) 2005 HPV Vaccines (1 - 3-dose series) 2005 Hepatitis C Screening 2008 Hepatitis B Vaccines (1 of 3 - 19+ 3-dose series) 2009 Cervical Cancer Screening 04/27/2024 HPV/Cotest 04/27/2024 Pap Smear 04/27/2024 04/27/2021 COVID-19 Vaccine ( season) 2025 02/06/2023, 06/07/2021, 05/17/2021 Influenza Vaccine (#1) 2025 10/01/2015 Depression Monitoring 09/28/2025 03/28/2025, 025 DTaP/Tdap/Td Vaccines (2 - Td or Tdap) 10/01/2025 10/01/2015 Diagnostic Breast Imaging 10/01/20252024, 01/01/2024, 12/02/2022, Additional history exists Mammogram 10/01/2025 03/31/2025, 02/02, 01/01/2024, Additional history exists Tobacco Screening 04/10/2026 04/10/2025 Lipid Panel 04/16/2026 05/07/2025, 04/16/2021 SDOH Screening 04/28/2026 04/28/2025 Disability Screening 05/07/2026 05/07/2025 Zoster Vaccines (1 of 2) 2040 RSV Patients and Patients Aged 60 years or older (1 - 1-dose 75+ series) 2065 HIB Vaccines Aged Out No longer eligi [...] patient's age to complete this topic Meningococcal Vaccine Aged Out No cresencio remedios eligible based on patient's age to complete this topic Pneumococcal Vaccine: Pediatrics (0 to 5 Years) and At-Risk Patients (6 to 49) Years Aged Out No longer eligible based on patient's age to complete this topic RSV under 20 months Aged Out No longe r eligible based on patient's age to complete this topic Rotavirus Vaccines Aged Out No longer eligible based on patient's age to complete this topic Procedures Procedure Name Priority Date/Time Associated Diagnosis [...] Chronic bilateral low back pain without sciatica BI US BREAST LIMITED LEFT Routine 03/31/2025 11:00 AM EDT BI MAMMOGRAM DIAGNOSTIC TOMOSYNTHESIS ADDED VIEW LEFT Routine 03/31/2025 10:35 AM EDT BI MAMMOGRAM SCREENING TOMOSYNTHESIS BILATERAL Routine 02/14/2025 11:50 AM EDT HM PAP/HPV Routine 04/27/2021 from Last 3 Months or Most Recently Relevant to Health Maintenance Results * (ABNORMAL) CBC auto differential (05/07/2025 10:34 AM EDT) White Blood Count 6.9 4.8 - 10.8 X10*3/uL [facility] Red Blood Count 4.70 4.20 - 5.50 X10*6/uL [facility] Hemoglobin 12.8 12.0 - 16.0 g/dl [facility] Hematocrit 37.8 37.0 - 47.0 % [facility] Mean Corpuscular Volume 80.4 80.0 - 98.0 fL [facility] Mean Corpuscular Hemoglobin 27.2 27.0 - 33.0 pg [facility] Mean Corpuscular HGB Conc 33.9 31.0 - 35.0 g/dl [facility] Red Cell Distribution Width 12.8 11.0 - 16.0 % [facility] Platelet Count 299 160 - 400 X10*3/uL [facility] Mean Platelet Volume 10.8 9.4 - 12.3 fL [facility] Neutrophils Percent Auto 59.4 45 - 73 % [facility] Imm Gran Pct Auto 0.6(H) 0.0 - 0.4 % [facility] Lymphocytes Percent Auto 32.9 20 - 40 % [facility] Monocytes Percent Auto 4.6 2 - 11 % [facility] Eosinophils Percent Auto 2.2 0 - 4 % [facility] Basophils Percent Auto 0.3 0 - 2 % [facility] NRBC Pct Auto 0.0 0.0 - 0.2 /100WBC [facility] Neutrophils Absolute Auto 4.1 2.0 - 8.3 x10*3/uL [facility] Imm Gran Abs Auto 0.04(H) 0.00 - 0.03 X10*3/uL [facility] Lymphocytes Absolute Auto 2.3 1.2 - 4.9 X10*3/uL [facility] Monocytes Absolute Auto 0.3 0.1 - 1.2 X10*3/uL [facility] Eosinophils Absolute Auto 0.2 0.0 - 0.4 X10*3/uL [facility] Basophils Absolute Auto 0.0 0.0 - 0.2 X10*3/uL [facility] NRBC Abs Auto 0.000 0.0 - 0.012 X10*3/uL [facility] Blood Venous blood specimen / Unknown 05/07/2025 10:34 AM EDT 05/07/2025 11:12 AM EDT us Marylu Rodrigues MD LAB BLOOD ORDERABLES Fin al Result [facility] [address] [place] [phone] * (ABNORMAL) Hemoglobin A1c (05/07/2025 10:34 AM EDT) Hemoglobin A1c 6.1(H) <6.0 % [facility] Comment:Hemoglobin A1C Refer ence Range Adults: 4.8 - 6.0 % Non diabetic: < 6.0 % Goal: < 7.0 %Additional Action Suggested: > 8.0 %Note: Hemoglobin A1c results are invalid for patients with abnormal amounts of HbF. Blood transfusions may impact the HbA1c concentration in the patient sample. Estimated Average Glucose 128 mg/dL [facility] Comment:eAG = Estimated ave rage glucose which is %A1C expressed asaverage glucose, using the formula of the T7E-CzdedrmFjzvxnx Glucose study (ADAG), Diabetes Care, Vol.31,#8,Apr. 2007 Blood Venous blood specimen / Unknown 05/07/2025 10:34 AM EDT 05/07/2025 11:12 AM EDT us Marylu Rodrigues MD LAB BLOOD ORDERABLES Fin al Result Performing Organization Address City/State[facility] Co de Phone Number [facility] [address] [place] [phone] * XR Lumbar Spine Complete 4+ Views (05/07/2025 10:04 AM EDT) Anatomical Region Laterality Modality Spine, L-spine Radiographic Candy ging 05/07/2025 10:0 4 AM EDT Narrative 05/07/2025 12:11 PM EDT [address] [address] XRay Report Signed Patient: Jaleesa Casper MR#: [id number] 39 : 1990 Acct:[id number] Age/Sex: 34 / F ADM Date: 05/07/25 Loc: .[facility] Attending Dr: Marylu Rodrigues MD Ordering Physician: Marylu Rodrigues MD Date of Service: 05/07/25 Procedure(s): XR lumbar spine 4V min Accession Number(s): [id number] cc: Marylu Rodrigues MD Reason for Exam: [...] Govind Adam MD 05/07/2025 12:08 PM EDT Dictated By: Govind Adam MD Signed By: <Electronically signed by Govind Adam MD in OV> 05/07/25 1208 DD/ 1004 TD/TT: 05/07/25 1005 Industrial Locomotive Operator: Procedure Note Donotuseinterpreter, Image - 05/07/2025 [place] [address] XRay Report Signed Patient: Jaleesa Casper [facility]#: [id number] 39 : 1990Acct:[id number] Age/Sex: 34 / FADM Date: 05/07/25 Loc: HO[facility] Attending Dr: Marylu Rodrigues MD Ordering Physician: Marylu Rodrigues MD Date of Service: 05/07/25 Procedure(s): XR lumbar spine 4V min Accession Number(s): [id number] cc: Marylu Rodrigues MD Reason for Exam: [...] 05/07/25 1208 DD/ 1004 TD/TT: 05/07/25 1005 Industrial Locomotive Operator: us Marylu Rodrigues MD IMG XR PROCEDURES Final Result * BI US Breast Limited Left (03/31/2025 11:00 AM EDT) Anatomical Region Laterality Modality Breast Left Ultrasound 03/31/2025 11:0 0 AM EDT Narrative 03/31/2025 12:08 PM EDT [facility] [address] [place] [address] Ultrasound Report Signed Patient: Jaleesa Casper MR#: [id number] 39 : 1990 Acct:[id number] Age/Sex: 34 / F ADM Date: 03/31/25 Loc: HO.MAMMO Attending Dr: Marylu Rodrigues MD Ordering Physician: Marylu Rodrigues MD Date of Service: 03/31/25 Procedure(s): US breast LT limited mamm only Accession Number(s): [id number] cc: Marylu Rodrigues MD EXAMINATIONS: 1. MM DIAGNOSTIC DIGITAL BREAST TOMOSYNTHESIS, LEFT 2. US BREAST LIMITED LEFT CLINICAL INFORMATION: -Callback from screening for left breast asymmetry lateral posterior depth on the CC view. -Today, patient mentioned pain in the left breast for about 3 months, lateral side towards the nipple. COMPARISON: February 14, 2025 and December 02, 2022 TECHNIQUE: Digital breast tomosynthesis is performed in full field ML 90 degrees and CC views along with computer-aided detection (CAD). Synthesized 2D images are generated from the tomosynthesis. Spot compression tomosynthesis images were also obtained. FINDINGS: BREAST COMPOSITION: There are scattered areas of fibroglandular density (ACR BI-RADS breast composition Category b). LEFT BREAST: - Previously suggested asymmetry in the lateral breast posterior depth at approximately 13 cm from the nipple on the CC view is pliable with spot compression. It is tentatively identified in the retroareolar plane on the ML 90 degrees. - No new masses or other abnormalities at the location of the pain. Targeted ultrasound of the left breast was performed at the following locations: - At the mammographic finding. The survey was performed throughout the 12:00-4:00 axis and did not reveal suspicious sonographic findings. - At the location of the pain. The survey was performed at 11:00-2:00 up to 4 to 5 cm from the nipple. Survey did not reveal suspicious sonographic findings. US/US breast LT limited mamm only IMPRESSION: LEFT BREAST: 1. Pliable asymmetry in the lateral breast at approximately 13 cm from the nipple on the CC view, without suspicious sonographic correlate. Probably benign. A 6-month follow-up mammogram is recommended. 2. No suspicious findings correlating with the location of focal pain. Clinical follow-up is recommended. ASSESSMENT: BI-RADS 3 - Probably benign finding(s) - 6 month follow-up suggested RECOMMENDATION: 6 Month F/U Results were provided to the patient at time of visit by the technologist. This patient's information was entered into a reminder system with a target due date for their next mammogram. Electronically signed by: Ryan Miranda MD 03/31/2025 12:05 PM EDT Dictated By: Ryan Miranda MD Signed By: <Electronically signed by Ryan Miranda MD in OV> 03/31/25 1205 DD/ 1100 TD/TT: 03/31/25 1121 Industrial Locomotive Operator: Procedure Note Donotuseinterpreter, Image - 03/31/2025 [place] [facility] [address] [place], [place] [address] Ultrasound Report Signed Patient: Jaleesa Casper MMR#: [id number] 39 : 1990Acct:[id number] Age/Sex: 34 / FADM Date: 03/31/25 Loc: HO.MAMMO Attending Dr: Marylu Rodrigues MD Ordering Physician: Marylu Rodrigues MD Date of Service: 03/31/25 Procedure(s): US breast LT limited mamm only Accession Number(s): [id number] cc: Marylu Rodrigues MD EXAMINATIONS: 1. MM DIAGNOSTIC DIGITAL BREAST TOMOSYNTHESIS, LEFT 2. US BREAST LIMITED LEFT CLINICAL INFORMATION: -Callback from screening for left breast asymmetry lateral posterior depth on the CC view. -Today, patient mentioned pain in the left breast for about 3 months, lateral side towards the nipple. COMPARISON: February 14, 2025 and December 02, 2022 TECHNIQUE: Digital breast tomosynthesis is performed in full field ML 90 degrees and CC views along with computer-aided detection (CAD). Synthesized 2D images are generated from the tomosynthesis. Spot compression tomosynthesis images were also obtained. FINDINGS: BREAST COMPOSITION: There are scattered areas of fibroglandular density (ACR BI-RADS breast composition Category b). LEFT BREAST: - Previously suggested asymmetry in the lateral breast posterior depth at approximately 13 cm from the nipple on the CC view is pliable with spot compression. It is tentatively identified in the retroareolar plane on the ML 90 degrees. - No new masses or other abnormalities at the location of the pain. Targeted ultrasound of the left breast was performed at the following locations: - At the mammographic finding. The survey was performed throughout the 12:00-4:00 axis and did not reveal suspicious sonographic findings. - At the location of the pain. The survey was performed at 11:00-2:00 up to 4 to 5 cm from the nipple. Survey did not reveal suspicious sonographic findings. US/US breast LT limited mamm only IMPRESSION: LEFT BREAST: 1. Pliable asymmetry in the lateral breast at approximately 13 cm from the nipple on the CC view, without suspicious sonographic correlate. Probably benign. A 6-month follow-up mammogram is recommended. 2. No suspicious findings correlating with the location of focal pain. Clinical follow-up is recommended. ASSESSMENT: BI-RADS 3 - Probably benign finding(s) - 6 month follow-up suggested RECOMMENDATION: 6 Month F/U Results were provided to the patient at time of visit by the technologist. This patient's information was entered into a reminder system with a target due date for their next mammogram. Electronically signed by: Ryan Miranda MD 03/31/2025 12:05 PM EDT Dictated By: Ryan Miranda MD Signed By: <Electronically signed by Ryan Miranda MD in OV> 03/31/25 1205 DD/ 1100 TD/TT: 03/31/25 1121 Industrial Locomotive Operator: us Marylu Rodrigues MD IMG US PROCEDURES Final Result * BI Mammogram Diagnostic Tomosynthesis added left (03/31/2025 10:35 AM EDT) Anatomical Region Laterality Modality Breast Left Mammography 03/31/2025 10:3 5 AM EDT Narrative 03/31/2025 12:08 PM EDT [facility] [address] [place] [address] Mammography Report Signed Patient: Jaleesa Casper MR#: [id number] 39 : 1990 Acct:[id number] Age/Sex: 34 / F ADM Date: 03/31/25 Loc: HO.MAMMO Attending Dr: Marylu Rodrigues MD Ordering Physician: Marylu Rodrigues MD Results: 3.6MProbably Benign Finding - Short 6 M F/U Suggested Date of Service: 03/31/25 Follow Up: 6 Month F/U Procedure(s): MM tomosynthesis added views L Accession Number(s): [id number] cc: Marylu Rodrigues MD EXAMINATIONS: 1. MM DIAGNOSTIC DIGITAL BREAST TOMOSYNTHESIS, LEFT 2. US BREAST LIMITED LEFT CLINICAL INFORMATION: -Callback from screening for left breast asymmetry lateral posterior depth on the CC view. -Today, patient mentioned pain in the left breast for about 3 months, lateral side towards the nipple. COMPARISON: February 14, 2025 and December 02, 2022 TECHNIQUE: Digital breast tomosynthesis is performed in full field ML 90 degrees and CC views along with computer-aided detection (CAD). Synthesized 2D images are generated from the tomosynthesis. Spot compression tomosynthesis images were also obtained. FINDINGS: BREAST COMPOSITION: There are scattered areas of fibroglandular density (ACR BI-RADS breast composition Category b). LEFT BREAST: - Previously suggested asymmetry in the lateral breast posterior depth at approximately 13 cm from the nipple on the CC view is pliable with spot compression. It is tentatively identified in the retroareolar plane on the ML 90 degrees. - No new masses or other abnormalities at the location of the pain. Targeted ultrasound of the left breast was performed at the following locations: - At the mammographic finding. The survey was performed throughout the 12:00-4:00 axis and did not reveal suspicious sonographic findings. - At the location of the pain. The survey was performed at 11:00-2:00 up to 4 to 5 cm from the nipple. Survey did not reveal suspicious sonographic findings. MM/MM tomosynthesis added views L IMPRESSION: LEFT BREAST: 1. Pliable asymmetry in the lateral breast at approximately 13 cm from the nipple on the CC view, without suspicious sonographic correlate. Probably benign. A 6-month follow-up mammogram is recommended. 2. No suspicious findings correlating with the location of focal pain. Clinical follow-up is recommended. ASSESSMENT: BI-RADS 3 - Probably benign finding(s) - 6 month follow-up suggested RECOMMENDATION: 6 Month F/U Results were provided to the patient at time of visit by the technologist. This patient's information was entered into a reminder system with a target due date for their next mammogram. Electronically signed by: Ryan Miranda MD 03/31/2025 12:05 PM EDT Dictated By: Ryan Miranda MD Signed By: <Electronically signed by Ryan Miranda MD in OV> 03/31/25 1205 DD/ 1035 TD/TT: 03/31/25 1053 Industrial Locomotive Operator: Procedure Note Donotuseinterpreter, Image - 03/31/2025 [place] [facility] [address] [place], [place] [address] Mammography Report Signed Patient: Jaleesa Casper [facility]#: [id number] 39 : 1990Acct:[id number] Age/Sex: 34 / FADM Date: 03/31/25 Loc: HO.MAMMO Attending Dr: Marylu Rodrigues MD Ordering Physician: Marylu Rodrigues MD Results: 3.6MProbably Benign Finding - Short 6 M F/U Suggested Date of Service: 03/31/25Follow Up: 6 Month F/U Procedure(s): MM tomosynthesis added views L Accession Number(s): [id number] cc: Marylu Rodrigues MD EXAMINATIONS: 1. MM DIAGNOSTIC DIGITAL BREAST TOMOSYNTHESIS, LEFT 2. US BREAST LIMITED LEFT CLINICAL INFORMATION: -Callback from screening for left breast asymmetry lateral posterior depth on the CC view. -Today, patient mentioned pain in the left breast for about 3 months, lateral side towards the nipple. COMPARISON: February 14, 2025 and December 02, 2022 TECHNIQUE: Digital breast tomosynthesis is performed in full field ML 90 degrees and CC views along with computer-aided detection (CAD). Synthesized 2D images are generated from the tomosynthesis. Spot compression tomosynthesis images were also obtained. FINDINGS: BREAST COMPOSITION: There are scattered areas of fibroglandular density (ACR BI-RADS breast composition Category b). LEFT BREAST: - Previously suggested asymmetry in the lateral breast posterior depth at approximately 13 cm from the nipple on the CC view is pliable with spot compression. It is tentatively identified in the retroareolar plane on the ML 90 degrees. - No new masses or other abnormalities at the location of the pain. Targeted ultrasound of the left breast was performed at the following locations: - At the mammographic finding. The survey was performed throughout the 12:00-4:00 axis and did not reveal suspicious sonographic findings. - At the location of the pain. The survey was performed at 11:00-2:00 up to 4 to 5 cm from the nipple. Survey did not reveal suspicious sonographic findings. MM/MM tomosynthesis added views L IMPRESSION: LEFT BREAST: 1. Pliable asymmetry in the lateral breast at approximately 13 cm from the nipple on the CC view, without suspicious sonographic correlate. Probably benign. A 6-month follow-up mammogram is recommended. 2. No suspicious findings correlating with the location of focal pain. Clinical follow-up is recommended. ASSESSMENT: BI-RADS 3 - Probably benign finding(s) - 6 month follow-up suggested RECOMMENDATION: 6 Month F/U Results were provided to the patient at time of visit by the technologist. This patient's information was entered into a reminder system with a target due date for their next mammogram. Electronically signed by: Ryan Miranda MD 03/31/2025 12:05 PM EDT Workstation: [employer] Dictated By: Ryan Miranda MD Signed By: <Electronically signed by Ryan Miranda MD in OV> 03/31/25 1205 DD/ 1035 TD/TT: 03/31/25 1053 Industrial Locomotive Operator: Marylu Rodrigues MD IMG BI PROCEDURES Final Result * BI Mammogram Screening Tomosynthesis Bilateral (02/14/2025 11:50 AM EDT) Anatomical Region Laterality Modality Breast Bilateral Mammography 02/14/2025 11:5 0 AM EDT Narrative 02/14/2025 3:14 PM EDT [facility] [address] [place] [address] Mammography Report Signed Patient: Jaleesa Casper MR#: [id number] 39 : 1990 Acct:[id number] Age/Sex: 34 / F ADM Date: 02/14/25 Loc: HO.MAMMO Attending Dr: Marylu Rodrigues MD Ordering Physician: Marylu Rodrigues MD Results: 0In complete: Needs Additional Imaging Evaluation Date of Service: 02/14/25 Follow Up: Additional Imagi ng Procedure(s): MM tomosynthesis screening BI Accession Number(s): [id number] cc: Marylu Rodrigues MD EXAMINATION: MM SCREENING DIGITAL BREAST TOMOSYNTHESIS, BILATERAL CLINICAL INFORMATION: Screening. Asymptomatic. COMPARISON: Mammography: Comparison is made with available priors TECHNIQUE: Digital breast mammography with tomosynthesis is performed in both the craniocaudal and mediolateral oblique views along with computer-aided detection (CAD). FINDINGS: There are scattered areas of fibroglandular density (ACR BI-RADS breast composition Category b). Left: Asymmetry lateral breast posterior depth on CC view. No suspicious calcifications or other abnormal findings. Right: There are no significant masses, abnormal calcifications, or other abnormalities. MM/MM tomosynthesis screening BI IMPRESSION: Additional imaging is recommended ASSESSMENT: BI-RADS BI-RADS 0 - Incomplete: Needs additional Imaging. RECOMMENDATION: 1. Additional views of the left breast. 2. Targeted ultrasound if warranted after review of the additional views. 3. Radiology department staff will contact the patient for additional imaging. Additional Imaging required This examination should not preclude the clinical evaluation of a suspicious palpable abnormality. This patient's information was entered into a reminder system with a target due date for their next mammogram. Electronically signed by: Deana Garcia DO 02/14/2025 03:11 PM EDT Dictated By: Deana Garcia DO Signed By: <Electronically signed by Deana Garcia DO in OV> 02/14/25 1511 DD/ 1150 TD/TT: 02/14/25 1207 Industrial Locomotive Operator: Procedure Note Donotuseinterpreter, Image - [facility]14[facility]20[facility] [address] [place] [address] Mammography Report Signed Patient: Jaleesa Casper [facility]#: [id number] 39 : 1990Acct:[id number] Age/Sex: 34 / FADM Date: 02/14/25 Loc: [facility] Attending Dr: Marylu Rodrigues MD Ordering Physician: Marylu Rodrigues MDResults: 0In complete: Needs Additional Imaging Evaluation Date of Service: 02/14/25Follow Up: Additional Imagi ng Procedure(s): MM tomosynthesis screening BI Accession Number(s): [id number] cc: Marylu Rodrigues MD EXAMINATION: MM SCREENING DIGITAL BREAST TOMOSYNTHESIS, BILATERAL CLINICAL INFORMATION: Screening. Asymptomatic. COMPARISON: Mammography: Comparison is made with available priors TECHNIQUE: Digital breast mammography with tomosynthesis is performed in both the craniocaudal and mediolateral oblique views along with computer-aided detection (CAD). FINDINGS: There are scattered areas of fibroglandular density (ACR BI-RADS breast composition Category b). Left: Asymmetry lateral breast posterior depth on CC view. No suspicious calcifications or other abnormal findings. Right: There are no significant masses, abnormal calcifications, or other abnormalities. MM/MM tomosynthesis screening BI IMPRESSION: Additional imaging is recommended ASSESSMENT: BI-RADS BI-RADS 0 - Incomplete: Needs additional Imaging. RECOMMENDATION: 1. Additional views of the left breast. 2. Targeted ultrasound if warranted after review of the additional views. 3. Radiology department staff will contact the patient for additional imaging. Additional Imaging required This examination should not preclude the clinical evaluation of a suspicious palpable abnormality. This patient's information was entered into a reminder system with a target due date for their next mammogram. Electronically signed by: Deana Garcia DO 02/14/2025 03:11 PM EDT Dictated By: Deana Garcia DO Signed By: <Electronically signed by Deana Garcia DO in OV> 02/14/25 1511 DD/ 1150 TD/TT: 02/14/25 1207 Industrial Locomotive Operator: Marylu Rodrigues MD IMG BI PROCEDURES Final Result * Hm Pap Smear (04/27/2021) Pap Negative for intraephithelial lesion or malignancy Negative for intraephithelial lesion or malignancy, Other 04/27/2021 Historical Provider HEALTH MAINTENANCE Final Result from Last 3 Months or Most Recently Relevant to Health Maintenance Insurance [facility] C3 Care Teams Line And Frame Poler Relationship Specialty Start Date End Date Marylu Rodrigues MD [address] [place] [phone] PCP - General Internal Medicine 05/07/25
--- OUTSIDE RECORDS SUMMARY | 2025-05-07 12:13 | XMS_ITS | Encounter Summary ---
Author Organization [employer] Address [address] [address] [place] [address] Care Team Providers Care Handle Bender Name Role Phone Marylu Rodrigues MD Primary Care Provider + Encounter Details Date Type Department Care Team (Latest Contact Info) Description 05/07/2025 Travel Social History Tobacco Use Types Packs/Day Years Used Date Smoking Tobacco: Never Smokeless Tobacco: Never Depression Answer Date Recorded Patient Health Questionnaire-9 Score 14 03/28/2025 Patient Health Questionnaire-9 Score 14 03/28/2025 Last PHQ-9: Questionnaire Data Not on file 0 03/28/2025 Housing Stability Answer Date Recorded What is your housing situation today? I have vanessa sing 04/28/[address] you li [...] Description 07/08/2025 12:00 PM EST Office Visit [facility] [address] [place] [address] Marylu Rodrigues MD [address] [place] [address] documented as of this encounter Visit Diagnoses Not on filedocumented in this encounter Additional Health Concerns Assessment Noted Time PHQ-9 Depression Total Score: 14 025 4:02 PM EDT documented as of this encounter Care Teams Handle Bender Relationship Specialty Start Date End Date Marylu Rodrigues MD [address] [place] [phone] PCP - General Internal Medicine 05/07/25 documented as of this encounter
--- OUTSIDE RECORDS SUMMARY | 2025-05-07 12:13 | XMS_ITS | Encounter Summary ---
Author Organization [employer] Address [address] [place] [address] [address] [place] [address] Care Team Providers Care Instructor Private Name Role Phone Ирина Santiago NP Primary Care Provider [phone] Marylu Rodrigues MD Primary Care Provider + Reason for Visit * Reason Onset Date Comments ER Follow-up 05/07/2024 Referral 05/07/2024 Encounter Details Date Type Department Care Team (Late st Contact Info) Description 05/07/2024 Telephone [facility] [address] [place], [place] [phone] Ириан Santiago NP [address] [place], [place] [phone] ER Follow-up; Referral Social History Tobacco Use Types Packs/Day Years Used Date Smoking Tobacco: Never Smokeless Tobacco: Never Comments Unknown Sex and Gender Information Value Date Recorded Sex Assigned at Female 07/04/2022 10:35 AM EDT Legal Sex Female 10:35 AM EDT Gender Identity Choose not to disclose 10:35 AM EDT Sexual Orientation Choose not to disclose 2021 10:35 AM EDT documented as of this encounter Miscellaneous Notes * Telephone Encounter - Lorraine Lang RN - 05/09/2024 10:50 AM EDT T/C placed to pt for status check. Pt reports that she was referred to Ortho by Urgent care and does not need a referral from pcp. Pt reports that she was seen by Orthopedics yesterday and does not need to schedule a follow up now. Pt agrees to call for any new or worsening symptoms. * Telephone Encounter - Avril Vergara - 05/07/2024 3:19 PM EDT Patient calling to report ED visit on : Date: 04/29/24 Hospital: [facility] MD Urgent care Seen for: Right hand injury/fracture Pt advised to contact PCP for a orthopedic referral Patient advised will forward to team nurse for follow up Contact pt at [phone] documented in this encounter Plan of Treatment Upcoming Encounters Date Type Department Care Team (Late st Contact Info) Description 07/08/2025 12:00 PM EST Office Visit [facility] [address] [place], [place] [phone] Marylu Rodrigues MD [address] [place] [address] documented as of this encounter Visit Diagnoses Not on filedocumented in this encounter Care Teams Instructor Private Relationship Specialty Start Date End Date Ирина Santiago NP [address] [place] [address] [phone] PCP - General Family Medicine 02/28/24 05/06/25 Marylu Rodrigues MD [address] [place] [phone] PCP - General Internal Medicine 05/07/25 documented as of this encounter
[2025-05-07 12:51] LABS: Syphilis Screen Nonreactive (Nonreactive)
[2025-05-07 12:52] LABS: HBS Num1 0.00 mIU/mL (0-7.99); HBc Num1 0.08 S/CO (0.00-0.79); HBsAGNum1 0.77 S/CO (0.00-0.99); HIV Num 1 0.08 S/CO (0.00-0.99); Hepatitis A Antibody IgM 0.23 Index (0-0.79); Hepatitis B Surface Antigen Negative (Negative); ~HepC Num1 0.14 S/CO (0.00-0.79); ~Hepatitis A Antibody IgM Nonreactive (Nonreactive); ~Hepatitis B Surface Antibody NONREACTIVE (Nonreactive); ~Hepatitis C Antibody Nonreactive (Nonreactive)
[2025-05-07 13:24] LABS: Reflex LDLD? No
== END 2025-05-07 10:26 | disposition home or self-care (01) ==
LOC: HO.HHCL 10:25
PROVIDERS: PCP Internal Medicine; Visit Provider Internal Medicine
DX: Z01.84 Encounter for antibody response examination (principal); Z11.3 Encounter for screening for infections with a predominantly sexual mode of transmission; Z11.59 Encounter for screening for other viral diseases; Z11.4 Encounter for screening for human immunodeficiency virus [HIV]; M54.50 Low back pain, unspecified; G89.29 Other chronic pain; N63.15 Unspecified lump in the right breast, overlapping quadrants; E66.812 Obesity, class 2; Z68.35 Body mass index [BMI] 35.0-35.9, adult; F33.2 Major depressive disorder, recurrent severe without psychotic features
CPT/HCPCS: 36415; 72110; 80053; 80061; 83036; 84443; 85025; 86704; 86706; 86709; 86780; 86803; 87340; 87389

== ENCOUNTER → 2025-05-07 10:43 | Outpatient (BNV) | payer MEDICAID, SELFPAY | PROVIDERS: PCP Internal Medicine; Visit Provider Radiology Diagnostic Radiology | DX: M51.360 Other intervertebral disc degeneration, lumbar region with discogenic back pain only (principal) | CPT/HCPCS: 72110 ==

== ENCOUNTER 2025-08-11 14:49 | Outpatient (REF) | payer MEDICAID, SELFPAY ==
--- NOTE | ~2025-08-11 | US_ITS ---
EXAMINATION: US PELVIS CLINICAL INFORMATION: Dysmenorrhea and menorrhagia. COMPARISON: None relevant. TECHNIQUE: Ultrasound of the pelvis is performed using both transabdominal and transvaginal transducers along with Doppler. Transvaginal imaging is performed due to inadequate visualization transabdominally. FINDINGS: Uterus: The uterus is retroverted, retroflexed, and measures 11.3 x 5.2 x 5.9 cm. The cervix is normal with small nabothian cysts present. The double wall endometrial thickness is 8 mm. Within the fundal endometrium, there is a suspected echogenic endometrial polyp measuring 1.5 x 0.7 x 0.9 cm. (US 1-1, image 85). The uterus is smooth in contour and has normal myometrial echogenicity. No visible fibroid. Adnexa: Both ovaries are visualized. There is normal color flow to the adnexa. There is no ovarian torsion. There is trace free pelvic fluid, likely physiologic. There are no adnexal masses. Right ovary measures 3.2 x 2.2 x 2.4 cm. Volume = 9.0 mL. Normal sonographic appearance. Left ovary measures 4.2 x 1.3 x 1.5 cm. Volume = 4.3 mL. Normal sonographic appearance. US/US pelvic and transvaginal IMPRESSION: 1. Suspect endometrial polyp in the fundal endometrium measuring 1.5 x 0.7 x 0.9 cm. 2. Endometrium is otherwise grossly normal measuring 8 mm in thickness. 3. No definite myometrial abnormality. 4. Normal ovaries bilaterally. Electronically signed by: Govind Adam MD 08/11/2025 04:18 PM [facility]
--- OUTSIDE RECORDS SUMMARY | 2025-08-12 00:12 | XMS_ITS | Encounter Summary ---
Author Organization [employer] Address [address] [place] [address] [address] [place] [address] Care Team Providers Care Public Transit Trolley Driver Name Role Phone Glendy KnightP Primary Care Provider + Ирина Santiago NP Primary Care Provider [phone] Marylu Rodrigues MD Primary Care Provider + Encounter Details Date Type Department Care Team (Late st Contact Info) Description 02/21/2023 Abstract [facility] MED[facility]INE [address] [place] [phone] Glendy Knight FNP [address] [place] [address] Social History Tobacco Use Types Packs/Day Years [...] Care Team (Late st Contact Info) Description 09/16/2025 11:15 AM EST Office Visit [facility] [address] [place] [phone] Marylu Rodrigues MD [address] [place] [address] documented as of this encounter Procedures Procedure Name Priority Date/Time Associated Diagnosis Comments HM PAP/HPV Routine 04/27/2021 documented in this encounter Results * Pap Smear (04/27/2021) Pap Negative for intraephithelial lesion or malignancy Negative for intraephithelial lesion or malignancy, Other 04/27/2021 Historical Provider [facility] Final Result documented in this encounter Visit Diagnoses Not on filedocumented in this encounter Care Teams Public Transit Trolley Driver Relationship Specialty Start Date End Date Glendy Knight FNP [address] [place] [address] PCP - General Family Medicine 01/31/23 02/27/24 Ирина Santiago NP [address] [place] [address] PCP - General Family Medicine 02/28/24 05/06/25 Marylu Rodrigues MD [address] [place] [address] PCP - General Internal Medicine 05/07/25 documented as of this encounter
--- OUTSIDE RECORDS SUMMARY | 2025-08-12 00:13 | XMS_ITS | Clinical Summary ---
Author Organization [employer] Address [address] [place] [address] Care Team Providers Care Patient Services Assistant Name Role Phone Marylu Rodrigues MD Primary Care Provider + Allergies No known active allergies Medications * This document contains information received from the source organization and may not represent a complete record from that organization. meloxicam (Mobic) 15 MG tablet Take 1 tablet (15 mg) by mouth Once per day. 30 tablet 07/08/2025 Active cyclobenzaprine (Flexeril) 10 MG tablet Take 1 tablet (10 mg) by mouth at bedtime. 30 tablet 07/08/2025 Active Multiple Vitamin (Multivitamin Adult) tablet Take 1 tablet by mouth Once per day. 90 tablet 3 07/08/2025 Active Active Problems Problem Noted Date Diagnosed Date Menorrhagia with regular cycle 07/09/2025 Assessment & Plan (07/09/2025 4:06 PM EST): - RO fibroids or ? Ovarian cysts? Endometriosis?. No evidence of anemia. Obtain PAP smear from [facility] - Advised to take ibuprofen daily starting the day before menstrual bleeding and continue throughout menstruation. - Ordered pelvic ultrasound to evaluate for fibroids or other structural causes. Discussed possible future hormonal therapy (oral contraceptive pills for 3-6 months). FU in 2mo or earlier after pelvic US and to bring menstrual diary - Advised to consider multivitamins with iron x 3mo + increased fluid intake during menstruation as heavy menstrual bleeding can contribute to fatigue. Obesity (BMI 30-39.9) 07/08/2025 Assessment & Plan (07/09/2025 3:59 PM EST): - Obesity contributing to prediabetes and worsening back pain. - Recommended weight reduction. Advised dietary modification and referral to celebrity chef entrepreneur media personality for education on healthy eating habits, label reading, and meal planning. Advised to focus on better dietary habits and increase frequency of meals. - No pharmacologic therapy initiated at this time; will reconsider medications such as metformin or GLP-1 agonists after dietary changes and increased food intake. Mass of upper outer quadrant of left breast 11/2024 Assessment & Plan (05/07/2025 3:51 PM EDT): FU with left breast US and mammogram Q6m, next one due on 09/2025 Severe episode of recurrent major depressive disorder, without psychotic features (CMS/HCC) 03/28/2025 Assessment & Plan (07/09/2025 4:01 PM EST): - Ongoing psychotherapy via telehealth (Yasmin [facility])with Cindy. - She feels safe at home. - FU in 3mo Assessment & Plan (05/07/2025 3:55 PM EDT): Referred to Edward Jane ([address] [place] [address] ), advised to reach to her counselor within use about her niece passing away. She feels safe at home and is able to reach out for safety, she has crisis number or can come to walk-in as needed worsening depression/anxiety. 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 Can take Tylenol as needed for mild to moderate pain. Order x-rays of the spine and follow-up with me next month, we discussed about probably refer her to physical therapy for long-term management of chronic low back pain. 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 Recommended to decrease soda and sugary beverage consumption, increase protein intake with meals (at least 1 portion of protein with each meal) to assist with satiety, increase dietary fiber Recommended at least 150 min/week of moderate intensity exercise. Declined referral to dietitian, will order labs and fu at next appt. Encounters Date Type Department Care Team Description 07/08/2025 12:00 PM EST Office Visit [facility] MEDICINE [address] [place] [phone] Marylu Rodrigues MD Obesity (BMI 30-39.9) (Primary Dx); Severe episode of recurrent major depressive disorder, without psychotic features (CMS/HCC) (HCC); Menorrhagia with regular cycle; Encounter for immunization 07/08/2025 Travel from Last 3 Months Immunizations Immunization Administration Dates Next Due Influenza injectable quadrivalent preservative f ree 10/01/2015 Influenza, seasonal, injectable, preservative fr ee 07/08/2025 MMR 10/30/2015 Tdap 10/01/2015 Family History Medical History Relation Name Comments Breast cancer Father's Sister Breast cancer Mother's Sister Relation Name Status Comments Father's Sister Mother's Sister Social History Tobacco Use Types Packs/Day Years Used Date Smoking Tobacco: Never Smokeless Tobacco: Never Tobacco Cessation:Counseling Given: Not Answered Alcohol Use Standard Drinks/Week Comments Not Currently 0 (1 standard drink = 0.6 oz pure alcohol) Drinks on holidays only/1 or 2 drinks Depression Answer Date Recorded Patient Health Questionnaire-9 Score 10 07/08/2025 Patient Health Questionnaire-9 Score 10 07/08/2025 Last PHQ-9: Questionnaire Data Not on file 1 09/07/2024 Housing Stability Answer Date Recorded What is [...] Answer Date Recorded Patient Health Questionnaire-2 Score 2 07/08/2025 Internet Access Answer Date Recorded Internet Access Q1 Yes 04/28/2025 Internet Access Q2 Not on file 04/28/2025 Comments Unknown Intention Date Recorded No desire to become (finding) 1 09/07/2024 Sex and Gender Information Value Date Recorded Sex Assigned at Female 07/04/2022 10:35 AM EDT Legal Sex Female 10:35 AM EDT Gender Identity Choose not to disclose 10:35 AM EDT Sexual Orientation Choose not to disclose 2021 10:35 AM EDT Last Filed Vital Signs Vital Sign Reading Time Taken Comments Blood Pressure 118/80 07/08/2025 12:03 PM EST Pulse 86 07/08/2025 12:03 PM EST Temperature 36.4 C (97.6 F) 07/08/2025 12:03 PM EST Respiratory Rate 20 07/08/2025 12:03 PM EST Oxygen Saturation 98% 10/27/2023 9:01 AM EST Inhaled Oxygen Concentration - - Weight 92.8 kg (204 lb 9.6 oz) 07/08/2025 12:03 PM EST Height 160 cm (5' 3 ) 07/08/2025 12:03 PM EST Body Mass Index 36.24 07/08/2025 12:03 PM EST Plan of Treatment Upcoming Encounters Date Type Department Care Team (Late st Contact Info) Description 09/16/2025 11:15 AM EST Office Visit [facility] MEDICINE [address] [place] [address] Marylu Rodrigues MD [address] [place], [place] [phone] Health Maintenance Due Date Last Done Comments Alcohol/Substance Use Screening 2002 HPV Vaccines (1 - 3-dose series) 2005 Hepatitis B Vaccines (1 of 3 - 19+ 3-dose series) 2009 HPV/Cotest 04/27/2024 Pap Smear 04/27/2024 04/27/2021 COVID-19 Vaccine ( season) 2025 02/06/2023, 06/07/2021, 05/17/2021 DTaP/Tdap/Td Vaccines (2 - Td or Tdap) 10/01/2025 10/01/2015 Diagnostic Breast Imaging 10/01/20252024, 01/01/2024, 12/02/2022, Additional history exists Mammogram 10/01/2025 03/31/2025, 03/05, 02/14/2025, Additional history exists Cervical Cancer Screening 12/25/2025 Po stponed from 04/27/2024 (Other Medical Reasons) Depression Monitoring 01/05/2026 07/08/2025, 025 SDOH Screening 04/28/2026 04/28/2025 Diabetes: Hemoglobin A1C 05/07/2026 025, 10/27/2023, 04/15/2022 Disability Screening 05/07/2026 05/07/2025 Tobacco Screening 07/08/2026 07/08/2025 Family Planning (PISQ) 07/09/2026 07/09/2025 Lipid Panel 05/07/2030 05/07/2025, 04/16/2021 Zoster Vaccines (1 of 2) 2040 RSV Patients and Patients Aged 60 years or older (1 - 1-dose 75+ series) 2065 HIV Screening Completed 05/07/2025 Hepatitis C Screening Completed 05/07/2025 Influenza Vaccine Completed 07/08/2025, 10/01/2015 HIB Vaccines Aged Out No longer eligi [...] Procedure Name Priority Date/Time Associated Diagnosis Comments US PELVIS TRANSVAGINAL Routine 08/11/2025 3:05 PM EST Menorrhagia with regular cycle HEPATITIS PANEL, GENERAL Routine 05/07/2025 10:34 AM EDT Screening examination for STD (sexually transmitted disease) HIV 1/2 ANTIGEN/ANTIBODY, FOURTH GENERATION W/RFL Routine 05/07/2025 10:34 AM EDT Screening examination for STD (sexually transmitted disease) HEMOGLOBIN A1C Routine 05/07/2025 10:34 AM EDT Class 2 obesity due to excess calories without serious comorbidity with body mass index (BMI) of 35.0 to 35.9 in adult LIPID PANEL WITH REFLEX TO DIRECT LDL Routine 05/07/2025 10:34 AM EDT Class 2 obesity due to excess calories without serious comorbidity with body mass index (BMI) of 35.0 to 35.9 in adult BI US BREAST LIMITED LEFT Routine 03/31/2025 11:00 AM EDT HM PAP/HPV Routine 04/27/2021 from Last 3 Months or Most Recently Relevant to Health Maintenance Results * US Pelvis Transvaginal (08/11/2025 3:05 PM EST) Anatomical Region Laterality Modality Pelvis Ultrasound 08/11/2025 3:05 PM EST Narrative 08/11/2025 4:21 PM EST [place] [id number] Ultrasound Report Signed Patient: Jaleesa Casper MR#: [id number] 39 : 1990 Acct:[id number] Age/Sex: 34 / F ADM Date: 08/11/25 Loc: .US Attending Dr: Marylu Rodrigues MD Ordering Physician: Marylu Rodrigues MD Date of Service: 08/11/25 Procedure(s): US pelvic and transvaginal Accession Number(s): [id number] cc: Marylu Rodrigues MD Reason for Exam: dysmenorrhea + menorrhagia EXAMINATION: US PELVIS CLINICAL INFORMATION: Dysmenorrhea and menorrhagia. COMPARISON: None relevant. TECHNIQUE: Ultrasound of the pelvis is performed using both transabdominal and transvaginal transducers along with Doppler. Transvaginal imaging is performed due to inadequate visualization transabdominally. FINDINGS: Uterus: The uterus is retroverted, retroflexed, and measures 11.3 x 5.2 x 5.9 cm. The cervix is normal with small nabothian cysts present. The double wall endometrial thickness is 8 mm. Within the fundal endometrium, there is a suspected echogenic endometrial polyp measuring 1.5 x 0.7 x 0.9 cm. (US 1-1, image 85). The uterus is smooth in contour and has normal myometrial echogenicity. No visible fibroid. Adnexa: Both ovaries are visualized. There is normal color flow to the adnexa. There is no ovarian torsion. There is trace free pelvic fluid, likely physiologic. There are no adnexal masses. Right ovary measures 3.2 x 2.2 x 2.4 cm. Volume = 9.0 mL. Normal sonographic appearance. Left ovary measures 4.2 x 1.3 x 1.5 cm. Volume = 4.3 mL. Normal sonographic appearance. US/US pelvic and transvaginal IMPRESSION: 1. Suspect endometrial polyp in the fundal endometrium measuring 1.5 x 0.7 x 0.9 cm. 2. Endometrium is otherwise grossly normal measuring 8 mm in thickness. 3. No definite myometrial abnormality. 4. Normal ovaries bilaterally. Electronically signed by: Govind Adam MD 08/11/2025 04:18 PM [facility] [place] Dictated By: Govind Adam MD Signed By: <Electronically signed by Govind Adam MD in [place]> 08/11/25 1618 DD/ 1505 TD/TT: 08/11/25 1543 [employer] Machine Operator: Procedure Note Donotuseinterpreter, Image - 08/11/2025 [place] [address] Ultrasound Report Signed Patient: Jaleesa Casper [facility]#: [id number] 39 : 1990Acct:[id number] Age/Sex: 34 / FADM Date: 08/11/25 Loc: .[place] Attending Dr: Marylu Rodrigues MD Ordering Physician: Marylu Rodrigues MD Date of Service: 08/11/25 Procedure(s): US pelvic and transvaginal Accession Number(s): [id number] cc: Marylu Rodrigues MD Reason for Exam: dysmenorrhea + menorrhagia EXAMINATION: US PELVIS CLINICAL INFORMATION: Dysmenorrhea and menorrhagia. COMPARISON: None relevant. TECHNIQUE: Ultrasound of the pelvis is performed using both transabdominal and transvaginal transducers along with Doppler. Transvaginal imaging is performed due to inadequate visualization transabdominally. FINDINGS: Uterus: The uterus is retroverted, retroflexed, and measures 11.3 x 5.2 x 5.9 cm. The cervix is normal with small nabothian cysts present. The double wall endometrial thickness is 8 mm. Within the fundal endometrium, there is a suspected echogenic endometrial polyp measuring 1.5 x 0.7 x 0.9 cm. (US 1-1, image 85). The uterus is smooth in contour and has normal myometrial echogenicity. No visible fibroid. Adnexa: Both ovaries are visualized. There is normal color flow to the adnexa. There is no ovarian torsion. There is trace free pelvic fluid, likely physiologic. There are no adnexal masses. Right ovary measures 3.2 x 2.2 x 2.4 cm. Volume = 9.0 mL. Normal sonographic appearance. Left ovary measures 4.2 x 1.3 x 1.5 cm. Volume = 4.3 mL. Normal sonographic appearance. US/US pelvic and transvaginal IMPRESSION: 1. Suspect endometrial polyp in the fundal endometrium measuring 1.5 x 0.7 x 0.9 cm. 2. Endometrium is otherwise grossly normal measuring 8 mm in thickness. 3. No definite myometrial abnormality. 4. Normal ovaries bilaterally. Electronically signed by: Govind Adam MD 08/11/2025 04:18 PM [facility] [place] Dictated By: Govind Adam MD Signed By: <Electronically signed by Govind Adam MD in OV> 08/11/25 1618 DD/ 1505 TD/TT: 08/11/25 1543 [employer] Machine Operator: us Marylu Rodrigues MD IM US PROCEDURES Final Result * (ABNORMAL) Lipid Panel with Reflex to Direct LDL (05/07/2025 10:34 AM EDT) Triglycerides 94 <150 mg/dL [facility] Comment:Desirable Triglyceri de: less than 150 mg/dLBorderline High Triglyceride 150-199 mg/dLHigh Triglyceride: 200-499 mg/dLVery High Triglyceride: greater than or equal to 5OO mg/dL Cholesterol 160 <200 mg/dL [facility] Comment:Desirable Cholestero l: less than 200 mg/dLBorderline High Cholesterol: 200-239 mg/dLHigh Cholesterol: greater than 239 mg/dL LDL Cholesterol Calculated 104(H) <100 mg/dL [facility] Comment:Desirable LDL: less than 100 mg/dLNear Optimal/Above Optimal LDL: 110- 129 mg/dLBorderline High LDL: 130-159 mg/dLHigh LDL: 160-189 mg/dLVery High LDL: greater than or equal to 190 mg/dL HDL Cholesterol 38(L) >40 mg/dL [facility] Comment:Desirable HDL: great er than 40 mg/dL Note: This HDL assay may give artificially low results in patients with liver disease. Blood 05/07/2025 10:3 4 AM EDT 05/07/2025 11:39 AM EDT us Marylu Rodrigues MD LAB BLOOD ORDERABLES Fin al Result Performing Organization Address [facility] de Phone Number [facility] [address] [place] [phone] * Hepatitis Panel, General (05/07/2025 10:34 AM EDT) Hepatitis A IgM Nonreactive Nonreactive [facility] Comment:IgM antibodies to VIDES V not detected; does not exclude earlyacute or recovered HAV infection. ~Hepatitis B Surface Antibody NONREACTIVE Nonreactive [facility] Comment:Nonreactive: < 8.00 mIU/mL Hepatitis B Core Antibody Nonreactive Nonreactive [facility] Hepatitis C Antibody Nonreactive Nonreactive [facility] Comment:Antibodies to HCV no t detected; does not exclude early acuteHCV infection. Hepatitis B Surface Ag Negative Negative [facility] Blood 05/07/2025 10:3 4 AM EDT 05/07/2025 11:39 AM EDT us Marylu Rodrigues MD LAB BLOOD ORDERABLES Fin al Result Performing Organization Address [facility] Co de Phone Number [facility] [address] [place] [phone] * HIV-1/2 Antigen and Antibodies, Fourth Generation, with Reflexes (05/07/2025 10:34 AM EDT) HIV AB/AG Nonreactive Nonreactive [facility] Comment:HIV-1 p24 Ag and/or HIV-1/HIV-2 Ab not detected.A test result that is nonreactive does not exclude thepossibility of exposure to or infection with HIV-1 and/orHIV-2. Nonreactive results in this assay for individualswith prior exposure to HIV-1 and/or HIV-2 may be due toantigen and antibody levels that are below the limit ofdetection of this assay.The StoredIQ HIV Ag/Ab Combo assay result andsupplemental assay results should be interpreted inconjunction with the patient's clinical presentation,history and other laboratory results. If the results areinconsistent with clinical evidence, additional testing issuggested to confirm the result. Blood Venous blood specimen / Unknown 05/07/2025 10:34 AM EDT 05/07/2025 11:39 AM EDT us Marylu Rodrigues MD LAB BLOOD ORDERABLES Fin al Result [facility] [address] [place] [phone] * (ABNORMAL) Hemoglobin A1c (05/07/2025 10:34 AM EDT) Hemoglobin A1c 6.1(H) <6.0 % [facility] Comment:Hemoglobin A1C Refer ence Range Adults: 4.8 - 6.0 % Non diabetic: < 6.0 % Goal: < 7.0 %Additional Action Suggested: > 8.0 %Note: Hemoglobin A1c results are invalid for patients with abnormal amounts of HbF. Blood transfusions may impact the HbA1c concentration in the patient sample. Estimated Average Glucose 128 mg/dL [facility] Comment:eAG = Estimated ave rage glucose which is %A1C expressed asaverage glucose, using the formula of the H0Q-YscpafoGuxkoir Glucose study (ADAG), Diabetes Care, Vol.31,#8,Apr. 2007 Blood Venous blood specimen / Unknown 05/07/2025 10:34 AM EDT 05/07/2025 11:12 AM EDT Marylu Rodrigues MD LAB BLOOD ORDERABLES Fin al Result [facility] [address] [place] [phone] * BI US Breast Limited Left (03/31/2025 11:00 AM EDT) Anatomical Region Laterality Modality Breast Left Ultrasound 03/31/2025 11:0 0 AM EDT Narrative 03/31/2025 12:08 PM EDT [facility] [address] [place] [address] Ultrasound Report Signed Patient: Jaleesa Casper MR#: [id number] 39 : 1990 Acct:[id number] Age/Sex: 34 / F ADM Date: 03/31/25 Loc: HO.MAMMO Attending Dr: Marylu Rodrigues MD Ordering Physician: Marylu Rodrigues MD Date of Service: 03/31/25 Procedure(s): US breast LT limited mamm only Accession Number(s): [id number] cc: Marylu Rodrigues MD EXAMINATIONS: 1. MM [...] Miranda MD 03/31/2025 12:05 PM EDT Workstation: [id number] Dictated By: Ryan Miranda MD Signed By: <Electronically signed by Ryan Miranda MD in OV> 03/31/25 1205 DD/ 1100 TD/TT: 03/31/25 1121 Vegetable Harvest Machine Operator: Procedure Note Donotuseinterpreter, Image - 03/31/2025 [facility] [address] [place] [address] [place] [address] Ultrasound Report Signed Patient: Jaleesa Casper [facility]#: [id number] 39 : 1990Acct:[id number] Age/Sex: 34 / FADM Date: 03/31/25 Loc: HO.MAMMO Attending Dr: Marylu Rodrigues MD Ordering Physician: Marylu Rodrigues MD Date of Service: 03/31/25 Procedure(s): US breast LT limited mamm only Accession Number(s): [id number] cc: Marylu Rodrigues MD EXAMINATIONS: 1. MM [...] 03/31/25 1205 DD/ 1100 TD/TT: 03/31/25 1121 Vegetable Harvest Machine Operator: Marylu Rodrigues MD IMG US PROCEDURES Final Result * Pap Smear (04/27/2021) Pap Negative for intraephithelial lesion or malignancy Negative for intraephithelial lesion or malignancy, Other 04/27/2021 Historical Provider HEALTH MAINTENANCE Final Result from Last 3 Months or Most Recently Relevant to Health Maintenance Insurance [employer] Care Teams Patient Services Assistant Relationship Specialty Start Date End Date Marylu Rodrigues MD [address] [place] [phone] PCP - General Internal Medicine 05/07/25
--- OUTSIDE RECORDS SUMMARY | 2025-08-12 00:13 | XMS_ITS | Encounter Summary ---
Author Organization [employer] Address [address] [place] [address] Care Team Providers Care [employer] Refiner Name Role Phone Ирина Santiago NP Primary Care Provider [phone] Marylu Rodrigues MD Primary Care Provider + Reason for Visit * Reason Onset Date Comments ER Follow-up 05/07/2024 Referral 05/07/2024 Encounter Details Date Type Department Care Team (Late st Contact Info) Description 05/07/2024 Telephone [facility] MEDICINE [address], [place] [phone] Ирина Santiago NP [address] [place], [place] [phone] ER Follow-up; Referral Social History Tobacco Use [...] worsening symptoms. * Telephone Encounter - Avril Jai - 05/07/2024 3:19 PM EDT Patient calling to report ED visit on : Date: 04/29/24 Hospital: [facility] MD Urgent care Seen for: Right hand injury/fracture Pt advised to contact PCP for a orthopedic referral Patient advised will forward to team nurse for follow up Contact pt at [phone] documented in this encounter Plan of Treatment Upcoming Encounters Date Type Department Care Team (Late st Contact Info) Description 09/16/2025 11:15 AM EST Office Visit [facility] MEDICINE [address] [place] [phone] Marylu Rodrigues MD [address] [place] [phone] documented as of this encounter Visit Diagnoses Not on filedocumented in this encounter Care Teams [employer]iner Relationship Specialty Start Date End Date Ирина Santiago NP [address] [place] [phone] PCP - General Family Medicine 02/28/24 05/06/25 Marylu Rodrigues MD [address] [place] [phone] PCP - General Internal Medicine 05/07/25 documented as of this encounter
== END 2025-08-11 14:50 | disposition home or self-care (01) ==
LOC: HO.US 14:49
PROVIDERS: PCP Internal Medicine; Visit Provider Internal Medicine
DX: N92.0 Excessive and frequent menstruation with regular cycle (principal); N94.6 Dysmenorrhea, unspecified
CPT/HCPCS: 76830; 76856

== ENCOUNTER → 2025-08-11 14:51 | Outpatient (BNV) | payer MEDICAID, SELFPAY | PROVIDERS: PCP Internal Medicine; Visit Provider Radiology Diagnostic Radiology | DX: N94.6 Dysmenorrhea, unspecified (principal); N92.0 Excessive and frequent menstruation with regular cycle | CPT/HCPCS: 76830; 76856 ==

== ENCOUNTER 2025-09-01 13:57 | Outpatient (REF) | payer MEDICAID, SELFPAY ==
[2025-09-01 15:46] LABS: Hematocrit 39.0 % (37.0-47.0); Hemoglobin 12.9 g/dl (12.0-16.0); Mean Corpuscular HGB Conc 33.1 g/dl (31.0-35.0); Mean Corpuscular Hemoglobin 26.3 pg (27.0-33.0); Mean Corpuscular Volume 79.4 fL (80.0-98.0); NRBC Abs Auto 0.000 X10*3/uL (0.0-0.012); NRBC Pct Auto 0.0 /100WBC (0.0-0.2); Platelet Count 353 X10*3/uL (160-400); Red Blood Count 4.91 X10*6/uL (4.20-5.50); White Blood Count 7.6 X10*3/uL (4.8-10.8)
== END 2025-09-01 13:58 | disposition home or self-care (01) ==
LOC: HO.LAB 13:57
PROVIDERS: PCP Internal Medicine; Visit Provider Obstetrics & Gynecology
DX: N93.9 Abnormal uterine and vaginal bleeding, unspecified (principal)
CPT/HCPCS: 36415; 84443; 84702; 85027

== ENCOUNTER 2025-09-01 13:57 | Outpatient (AMB) | payer MEDICAID, SELFPAY ==
--- NOTE | 2025-09-01 14:05 | MHC.OFFVIS ---
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 Suspect endometrial polyp in the fundal endometrium measuring 1.5 x 0.7 x 0.9 cm. 2. Endometrium is otherwise grossly normal measuring 8 mm in thickness. 3. No definite myometrial abnormality. 4. Normal ovaries bilaterally. Last Co testing in 02/25 was negative Last diagnostic mammogram breast ultrasound in 03/28 was BI-RADS 3, next mammogram is due in 09/29 [facility] Medical History [place] kidney History of gallbladder disease Hx gestational diabetes Surgical History H/O tubal ligation Hx of section Family History Paternal Grandmother Cancer Father Diabetes Mother Diabetes Maternal Aunt Breast cancer Paternal Aunt Breast cancer Social History Household Members: Significant Other and Children Housing: Apartment Alcohol intake: current Alcohol intake frequency: holidays/special occasions only Patient Tobacco Use Status: Never used Tobacco Tobacco use type: Cigarette Substance Use Type: Marijuana Current occupational status: employed 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[employer] Sexual orientation: Straight/Heterosexual Gender identity: Female Female Reproductive History Menstrual Age of Menarche: 12 Duration of menses: 3-5 days Date of last menstrual period: 08/26/25 control method: permanent sterilization Total pregnancies: 3 Full term: 2 Number of Living Children: 2 Ab spontaneous: 1 Date of last pap smear: 04/27/21 Review of Systems Card Reports as per HPI and Reports no additional complaints Resp Reports as per HPI and Reports no additional complaints GI Reports as per HPI and Reports no additional complaints Reports as per HPI Physical Exam Vital Signs: Last Vital Signs BP 124/82 09/01/25 14:06 BMI result Body Mass Index 35.6 Const General: cooperative, healthy appearing and comfortable Chest Chest palpation & inspection: normal inspection of the chest and normal palpation of entire chest wall Breast/axilla inspection: normal inspection of the breasts and normal inspection of the axillae Breast/axilla palpation: normal palpation of the breasts, normal palpation of the axillae and no axillary lymphadenopathy Resp Effort & Inspection: normal respiratory effort Auscultation: clear to auscultation bilaterally Percussion: percussion normal Cardio Palpation: normal PMI Rate: regular rate Rhythm: regular rhythm Heart sounds: no murmurs and no rubs Peripheral pulses: Peripheral pulses 2+ throughout GI Inspection: Yes normal to inspection Palpation (GI): Soft to palpation, nontender, no guarding, not rigid and No hepatosplenomegaly present Percussion: Yes normal to percussion Auscultation: normal bowel sounds Rectal Exam - Female: deferred Assessment & Plan Assessment & Plan (1) Abnormal uterine bleeding (AUB): Comment: BI-RADS 3 Endometrial polyp by ultrasound Code(s): N93.9 - Abnormal uterine and vaginal bleeding, unspecified Category: Medical Plan: GC and chlamydia taken CBC, TSH, HCG,ordered. Discussed with the patient the different causes of abnormal bleeding including thyroid disorders, uterine and ovarian pathology, endometrial hyperplasia, carcinoma and other potential causes. Discussed with the patient the work up including CBC (to r/o anemia), TSH, pelvic Ultrasound, endometrial sampling to r/o endometrial pathology. Discussed with the patient the finding on ultrasound, endometrial polyp, recommended hysteroscopy D&C possible polypectomy/myomectomy Discussed with the patient the procedure , all benefits and risks including but not limited to inability to complete the procedure , insufficient endometrial tissue for a complete evaluation of the endometrial cavity , bleeding, infection, possible need for blood transfusion with all its risk ( HIV,syphilis, Hepatitis, anaphylaxis shock, others..), injury to bladder, rectum, possible need for laparoscopy/laparotomy or hysterectomy. The patient verbalized understanding and signed the consent. Instructions given the patient to stay NPO after midnight the day prior to the procedure and to take only the specific medication (s) discussed the morning of the surgical procedure and to schedule a 2 week postoperative appointment Orders: Orders Complete Blood Count no Diff Today N93.9 - Abnormal uterine and vaginal bleeding, unspecified HCG Quantitative Today N93.9 - Abnormal uterine and vaginal bleeding, unspecified TSH reflex Free T4 Today N93.9 - Abnormal uterine and vaginal bleeding, unspecified Coding Level of Care Code Est Pt Level 3 (16299) Diagnoses Abnormal uterine bleeding (AUB) N93.9
[2025-09-01 14:06] VITALS: BP 124/82; BMI 35.6
--- OUTSIDE RECORDS SUMMARY | 2025-09-01 16:14 | XMS_ITS | Clinical Summary ---
Author Organization [employer] Address [address] [facility] [address] [place] [address] Care Team Providers Care Senior Sales Compensation Analyst Name Role Phone Marylu Rodrigues MD Primary Care Provider + Allergies No known active allergies Medications * This document contains information received from the source organization and may not represent a complete record from that organization. meloxicam (Mobic) 15 MG tablet Take 1 tablet (15 mg) by mouth Once per day. 30 tablet 07/08/2025 07/08/20 26 Active cyclobenzaprine (Flexeril) 10 MG tablet Take 1 tablet (10 mg) by mouth at bedtime. 30 tablet 07/08/2025 Active Multiple Vitamin (Multivitamin Adult) tablet Take 1 tablet by mouth Once per day. 90 tablet 3 07/08/2025 Active ibuprofen 600 MG tablet Take 1 tablet (600 mg) by mouth every 8 (eight) hours if needed for mild pain or moderate pain. 60 tablet 08/22/2025 09/21/19 26 Active Active Problems Problem Noted Date Diagnosed Date Endometrial polyp 08/21/2025 08/14/2025 Menorrhagia with regular cycle 07/09/2025 Assessment & Plan (07/09/2025 4:06 PM EST): - RO fibroids or ? Ovarian cysts? Endometriosis?. No evidence of anemia. Obtain PAP smear from [facility] - Advised to take ibuprofen daily starting [...] reduction. Advised dietary modification and referral to rental car deliverer for education on healthy eating habits, label [...] 3:55 PM EDT): Referred to Edward Jane ([address] [place] [address] ), advised to reach to her counselor [...] Encounters Date Type Department Care Team Description 08/21/2025 Results Follow-Up [facility] [address] [place] [address] Marylu Rodrigues MD US Pelvis Transvaginal 07/08/2025 12:00 PM EST Office Visit [facility] [address] [place] [address] Marylu Rodrigues MD Obesity (BMI 30-39.9) (Primary [...] your housing situation today? I have vanessa shawn 04/28/[address] you li [...] Description 09/16/2025 11:15 AM EST Office Visit [facility] [address] [place], [place] [phone] Marylu Rodrigues MD [address] [place] [address] Health Maintenance Due Date Last Done Comments [...] 12/02/2022, Additional history exists Mammogram 10/01/2025 03/31/2025, 0704/2025, 02/14/2025, Additional history exists Cervical Cancer Screening [...] Procedure Name Priority Date/Time Associated Diagnosis Comments CBC Routine 09/01/2025 2:56 PM EST US PELVIS TRANSVAGINAL Routine 08/11/2025 3:05 PM [...] to Health Maintenance Results * (ABNORMAL) CBC (09/01/2025 2:56 PM EST) White Blood Count 7.6 4.8 - 10.8 X10*3/uL [facility] Red Blood Count 4.91 4.20 - 5.50 X10*6/uL [facility] Hemoglobin 12.9 12.0 - 16.0 g/dl [facility] Hematocrit 39.0 37.0 - 47.0 % [facility] Mean Corpuscular Volume 79.4(L) 80.0 - 98.0 fL [facility] Mean Corpuscular Hemoglobin 26.3(L) 27.0 - 33.0 pg [facility] Mean Corpuscular HGB Conc 33.1 31.0 - 35.0 g/dl [facility] Red Cell Distribution Width 12.9 11.0 - 16.0 % [facility] Platelet Count 353 160 - 400 X10*3/uL [facility] Mean Platelet Volume 10.5 9.4 - 12.3 fL [facility] NRBC Pct Auto 0.0 0.0 - 0.2 /100WBC [facility] NRBC Abs Auto 0.000 0.0 - 0.012 X10*3/uL [facility] 09/01/2025 2:56 PM EST 09/01/2025 2:56 PM EST us Generic External Data Provider LAB BLOOD ORDERAB LES Final Result Performing Organization Address City/State/[facility] Co de Phone Number [facility] [address] [place] [phone] * US Pelvis Transvaginal (08/11/2025 3:05 PM EST) Anatomical Region Laterality Modality Pelvis Ultrasound 08/11/2025 3:05 PM EST Narrative 08/11/2025 4:21 PM EST [address] [address] Ultrasound Report Signed Patient: Jaleesa Casper MR#: [id number] 39 : 1990 Acct:[id number] Age/Sex: 34 / F ADM Date: 08/11/25 Loc: .US Attending Dr: Marylu Rodrigues MD Ordering Physician: Marylu Rodrigues MD Date of Service: 08/11/25 Procedure(s): US pelvic and transvaginal Accession Number(s): [id number] cc: Marylu Rodrigues MD Reason for Exam: [...] by: Govind Adam MD 08/11/2025 04:18 PM [facility] Dictated By: Govind Adam MD Signed By: <Electronically signed by Govind Adam MD in OV> 08/11/25 1618 DD/ 1505 TD/TT: 08/11/25 1543 Hazardous Waste Remover: Procedure Note Donotuseinterpreter, Image - 08/11/[address] [address] Ultrasound Report Signed Patient: Jaleesa Casper MMR#: [id number] [birth year] : 1990Acct:[id number] Age/Sex: 34 / FADM Date: 08/11/25 Loc: HO.US Attending Dr: Marylu Rodrigues MD Ordering Physician: Marylu Rodrigues MD Date of Service: 08/11/25 Procedure(s): US pelvic and transvaginal Accession Number(s): [id number] cc: Marylu Rodrigues MD Reason for Exam: [...] by: Govind Adam MD 08/11/2025 04:18 PM [facility] Dictated By: Govind Adam MD Signed By: <Electronically signed by Govind Adam MD in OV> 08/11/25 1618 DD/ 1505 TD/TT: 08/11/25 1543 Hazardous Waste Remover: us Marylu Rodrigues MD IMG US PROCEDURES Final Result * (ABNORMAL) Lipid Panel with Reflex to Direct LDL (05/07/2025 10:34 AM EDT) Triglycerides 94 <150 mg/dL [facility] Comment:Desirable Triglyceri de: less than 150 mg/dLBorderline High Triglyceride 150-199 mg/dLHigh Triglyceride: 200-499 mg/dLVery High Triglyceride: greater than or equal to 5OO mg/dL Cholesterol 160 <200 mg/dL [facility] Comment:Desirable Cholestero l: less than 200 mg/dLBorderline High Cholesterol: 200-239 mg/dLHigh Cholesterol: greater than 239 mg/dL LDL Cholesterol Calculated 104(H) <100 mg/dL [facility] Comment:Desirable LDL: less than 100 mg/dLNear Optimal/Above Optimal LDL: 110- 129 mg/dLBorderline High LDL: 130-159 mg/dLHigh LDL: 160-189 mg/dLVery High LDL: greater than or equal to 190 mg/dL HDL Cholesterol 38(L) >40 mg/dL [facility] Comment:Desirable HDL: great er than 40 mg/dL Note: This HDL assay may give artificially low results in patients with liver disease. Blood 05/07/2025 10:3 4 AM EDT 05/07/2025 11:39 AM EDT us Marylu Rodrigues MD LAB BLOOD ORDERABLES Fin al Result Performing Organization Address [facility] de Phone Number [facility] [address] [place] [phone] * Hepatitis Panel, General (05/07/2025 10:34 AM EDT) Hepatitis A IgM Nonreactive Nonreactive [facility] Comment:IgM antibodies to VIDES V not detected; does not exclude earlyacute or recovered HAV infection. ~Hepatitis B Surface Antibody NONREACTIVE Nonreactive [facility] Comment:Nonreactive: < 8.00 mIU/mL Hepatitis B Core Antibody Nonreactive Nonreactive [facility] Hepatitis C Antibody Nonreactive Nonreactive [facility] Comment:Antibodies to HCV no t detected; does not exclude early acuteHCV infection. Hepatitis B Surface Ag Negative Negative [facility] Blood 05/07/2025 10:3 4 AM EDT 05/07/2025 11:39 AM EDT Marylu Rodrigues MD LAB BLOOD ORDERABLES Fin al Result Performing Organization Address [facility] de Phone Number [facility] [address] [place] [phone] * HIV-1/2 Antigen and Antibodies, Fourth Generation, with Reflexes (05/07/2025 10:34 AM EDT) HIV AB/AG Nonreactive Nonreactive [facility] Comment:HIV-1 p24 Ag and/or HIV-1/HIV-2 Ab not detected.A test result that is nonreactive does not exclude thepossibility of exposure to or infection with HIV-1 and/orHIV-2. Nonreactive results in this assay for individualswith prior exposure to HIV-1 and/or HIV-2 may be due toantigen and antibody levels that are below the limit ofdetection of this assay.[employer] HIV Ag/Ab Combo assay result andsupplemental assay results should be interpreted inconjunction with the patient's clinical presentation,history and other laboratory results. If the results areinconsistent with clinical evidence, additional testing issuggested to confirm the result. Blood Venous blood specimen / Unknown 05/07/2025 10:34 AM EDT 05/07/2025 11:39 AM EDT us Marylu Rodrigues MD LAB BLOOD ORDERABLES Fin al Result [facility] [address] [place] [phone] * (ABNORMAL) Hemoglobin A1c (05/07/2025 10:34 AM EDT) Hemoglobin A1c 6.1(H) <6.0 % [facility] Comment:Hemoglobin A1C Refer ence Range Adults: 4.8 - 6.0 % Non diabetic: < 6.0 % Goal: < 7.0 %Additional Action Suggested: > 8.0 %Note: Hemoglobin A1c results are invalid for patients with abnormal amounts of HbF. Blood transfusions may impact the HbA1c concentration in the patient sample. Estimated Average Glucose 128 mg/dL [facility] Comment:eAG = Estimated ave rage glucose which is %A1C expressed asaverage glucose, using the formula of the H5U-WvzaictWmojimj Glucose study (ADAG), Diabetes Care, Vol.31,#8,Apr. 2007 Blood Venous blood specimen / Unknown 05/07/2025 10:34 AM EDT 05/07/2025 11:12 AM EDT Marylu Rodrigues MD LAB BLOOD ORDERABLES Fin al Result [facility] [address] [place] [phone] * BI US Breast Limited Left (03/31/2025 11:00 AM EDT) Anatomical Region Laterality Modality Breast Left Ultrasound 03/31/2025 11:0 0 AM EDT Narrative 03/31/2025 12:08 PM EDT [address] [place] [id number] Ultrasound Report Signed Patient: Jaleesa Casper MR#: [id number] [birth year] : 1990 Acct:[id number] Age/Sex: 34 / F ADM Date: 03/31/25 Loc: HO.MAMMO Attending Dr: Marylu Rodrigues MD Ordering Physician: Marylu Rodrigues MD Date of Service: 03/31/25 Procedure(s): US breast LT limited mamm only Accession Number(s): [id number] cc: Marylu Rodrigues MD EXAMINATIONS: 1. MM [...] 03/31/25 1205 DD/ 1100 TD/TT: 03/31/25 1121 Hazardous Waste Remover: Procedure Note Donotuseinterpreter, Image - [facility]/31/[facility] [address] [place] [address] Ultrasound Report Signed Patient: Jaleesa Casper [facility]#: [id number] 39 : 1990Acct:[id number] Age/Sex: 34 / FADM Date: 03/31/25 Loc: HO.MAMMO Attending Dr: Marylu Rodrigues MD Ordering Physician: Marylu Rodrigues MD Date of Service: 03/31/25 Procedure(s): US breast LT limited mamm only Accession Number(s): [id number] cc: Marylu Rodrigues MD EXAMINATIONS: 1. MM [...] 03/31/25 1205 DD/ 1100 TD/TT: 03/31/25 1121 Hazardous Waste Remover: Marylu Rodrigues MD IM US PROCEDURES Final Result * Pap Smear (04/27/2021) Pap Negative for intraephithelial lesion or malignancy Negative for intraephithelial lesion or malignancy, Other 04/27/2021 us Historical Provider HEALTH MAINTENANCE Final Result from Last 3 Months or Most Recently Relevant to Health Maintenance Insurance [facility] Document Management software C3 Care Teams Senior Sales Compensation Analyst Relationship Specialty Start Date End Date Marylu Rodrigues MD [address] [place] [address] [place] [id number] PCP - General Internal Medicine 05/07/25
--- OUTSIDE RECORDS SUMMARY | 2025-09-01 16:14 | XMS_ITS | Encounter Summary ---
Author Organization [employer] Address [address] [place] [address] 7 [place] [address] Care Team Providers Care Medical Accountant Name Role Phone Glendy KnightP Primary Care Provider + Ирина Santiago NP Primary Care Provider [phone] Marylu Rodrigues MD Primary Care Provider + Encounter Details Date Type Department Care Team (Late st Contact Info) Description 02/21/2023 Abstract [facility] [address] [place] [phone] Glendy Knight FNP [address] [place] [address] Social History Tobacco Use Types Packs/Day Years [...] Description 09/16/2025 11:15 AM EST Office Visit [facility] [address] [place] [phone] Marylu Rodrigues MD [address] [place] [address] documented as of this encounter Procedures Procedure Name Priority Date/Time Associated Diagnosis Comments HM PAP/HPV Routine 04/27/2021 documented in this encounter Results * Pap Smear (04/27/2021) Pap Negative for intraephithelial lesion or malignancy Negative for intraephithelial lesion or malignancy, Other 04/27/2021 Historical Provider [facility] Final Result documented in this encounter Visit Diagnoses Not on filedocumented in this encounter Care Teams Medical Accountant Relationship Specialty Start Date End Date Glendy Knight FNP [address] [place] [address] PCP - General Family Medicine 01/31/23 02/27/24 Ирина Santiago NP [address] [place] [address] PCP - General Family Medicine 02/28/24 05/06/25 Marylu Rodrigues MD [address] [place] [address] PCP - General Internal Medicine 05/07/25 documented as of this encounter
--- OUTSIDE RECORDS SUMMARY | 2025-09-01 16:14 | XMS_ITS | Clinical Summary ---
Author Organization [facility] ity Address [address] [place] [address] Care Team Providers Care Adult Live In Caregiver Name Role Phone Unavailable Primary Care Provider [...] Cervical Cancer Screening: P ap Smear 2011 HPV Vaccines (1 - 3-dose SCD M series) 2017 Depression Screening 09/04/2024 COVID-19 Vaccine ( - 2024-2 6 season) 2025 Influenza Vaccine (#1) 2025 RSV Immunization Adult Patie nts (1 - 1-dose 75+ series) 2065 HIB [...]
--- OUTSIDE RECORDS SUMMARY | 2025-09-01 16:14 | XMS_ITS | Encounter Summary ---
Author Organization [employer] Address [address] [facility] [address]t [place] [address] Care Team Providers Care Property Insurance Inspector Name Role Phone Ирина Santiago NP Primary Care Provider [phone] Marylu Rodrigues MD Primary Care Provider + Reason for Visit * Reason Onset Date Comments ER Follow-up 05/07/2024 Referral 05/07/2024 Encounter Details Date Type Department Care Team (Late st Contact Info) Description 05/07/2024 Telephone [facility] [address] [place], [place] [phone] Ирина Santiago NP [address] [place], [place] [phone] ER Follow-up; Referral Social History Tobacco Use [...] ED visit on : Date: 04/29/24 Hospital: [facility] MD Urgent care Seen for: Right hand injury/fracture Pt advised to contact PCP for a orthopedic referral Patient advised will forward to team nurse for follow up Contact pt at [phone] documented in this encounter Plan of Treatment Upcoming Encounters Date Type Department Care Team (Late st Contact Info) Description 09/16/2025 11:15 AM EST Office Visit [facility] [address] [place] [phone] Marylu Rodrigues MD [address] [place] [phone] documented as of this encounter Visit Diagnoses Not on filedocumented in this encounter Care Teams Property Insurance Inspector Relationship Specialty Start Date End Date Ирина Santiago NP [address] [place] [phone] PCP - General Family Medicine 02/28/24 05/06/25 Marylu Rodrigues MD [address] [place] [phone] PCP - General Internal Medicine 05/07/25 documented as of this encounter
== END 2025-09-01 14:44 | disposition home or self-care (01) ==
LOC: HO.HWS 13:57
PROVIDERS: PCP Internal Medicine; Visit Provider Obstetrics & Gynecology
DX: N93.9 Abnormal uterine and vaginal bleeding, unspecified (principal)
CPT/HCPCS: 99213

== ENCOUNTER 2025-09-01 15:19 | Outpatient (REF) | payer MEDICAID, SELFPAY ==
[2025-09-02 08:12] LABS: CT PCR NOT DETECTED (Not Detect.); NG PCR NOT DETECTED (Not Detect.)
== END 2025-09-01 15:20 | disposition home or self-care (01) ==
LOC: HO.LNP 15:19
PROVIDERS: Visit Provider Obstetrics & Gynecology
DX: N93.9 Abnormal uterine and vaginal bleeding, unspecified (principal); Z20.2 Contact with and (suspected) exposure to infections with a predominantly sexual mode of transmission
CPT/HCPCS: 87491; 87591